=== PATIENT | female | born 1970 | race Caucasian/White ===

== ENCOUNTER 2017-05-11 15:33 | Emergency (ER) | payer BC, MEDICAID, SELFPAY ==
[2017-05-11 15:35] VITALS: BP 167/109; PULSE 116; RESP 18; TEMP 37.1; O2SAT 98; BMI 25.0
--- NOTE | 2017-05-11 16:30 | ED.RN ---
PT LEFT WITHOUT BEING SEEN.
== END 2017-05-11 16:52 | disposition left against medical advice (07) ==
LOC: ED 16:38
PROVIDERS: Emergency Provider Emergency Medicine
DX: F10.239 Alcohol dependence with withdrawal, unspecified (principal)

== ENCOUNTER 2017-06-29 12:30 | Emergency (ER) | payer MEDICAID, SELFPAY ==
[2017-06-29 12:31] VITALS: BP 189/51; PULSE 89; RESP 16; TEMP 36.6; O2SAT 98; BMI 26.5
--- NOTE | 2017-06-29 12:44 | CT_ITS ---
STUDY: CT BRAIN WITHOUT CONTRAST REASON FOR EXAM: Female, 47 years old. Headaches and dizziness following a recent fall. RADIATION DOSAGE (If Supplied By Facility): CTDIvol = ( 44.99 ) mGy, DLP = ( 812.98 ) mGycm TECHNIQUE: Transaxial CT imaging of the brain was performed without administration of intravenous contrast material. Individualized dose optimization techniques were used for this CT. COMPARISON: None. FINDINGS: Normal soft tissue structures. Normal calvarium. Normal size ventricles and extra-axial spaces for the patient's age. Normal white matter tracts of the cerebral hemispheres. Normal basal ganglia and thalami. Normal brainstem. Normal cerebellum. There is no intracranial hemorrhage. There are no findings of an acute ischemic infarction. Minimal mucosal thickening of the inferior aspect of the right maxillary sinus. CT/Brain/Head without Contrast IMPRESSION: Normal unenhanced CT scan of the brain. Electronically Signed: Willy Callahan MD at 13:51 EDT Tel [phone], Service support ,
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
[2017-06-29 13:06] LABS: Absolute Lymphocyte Count 4.56 X10^3/ul (0.83-4.51); Absolute Neutrophil Count 4.2 X10^3/uL (2.0-7.7); Basophil# 0.09 X10^3/uL; Basophil% 0.9 % (0-1); Eosinophil# 0.23 X10^3/uL; Eosinophils% 2.4 % (0-5); Hematocrit 41.7 % (37-47); Hemoglobin 14.6 g/dl (12.0-15.0); Lymphocyte # 4.56 X10^3/ul (4.0); Lymphocyte % 47.2 % (19-41); Mean Corpuscular Hgb 35.1 pg (27.0-32.0); Mean Corpuscular Volume 100.2 fL (81-99); Mean Platelet Vol. 8.8 fl (6.2-12.0); Monocyte# 0.55 X10^3/uL; Monocyte% 5.7 % (0-10); Neutrophil # 4.22 X10^3/uL (2.7-7.7); Neutrophil % 43.6 % (47-70); Platelet Count 353 K/mm3 (150-450); RBC Distribution Width SD 48.2 fl (35.1-43.9); Red Blood Count 4.16 M/mm3 (4.2-5.4); White Blood Count 9.7 K/mm3 (4.4-11.0)
[2017-06-29 13:07] LABS: POSITIVE COUNT NO; POSITIVE DIFFERENTIAL NO; POSITIVE MORPHOLOGY NO
--- NOTE | 2017-06-29 13:27 | NURSING ---
CHEMISTRIES HEMOLIZED
[2017-06-29 14:11] LABS: Anion Gap 7 (5-15); BUN 12 mg/dL (7-18); BUN/Creat Ratio 22.6 RATIO (10-20); Calcium,Total 8.4 mg/dL (8.5-10.1); Chloride 112 mmol/L (98-107); Creatinine, Serum 0.53 mg/dL (0.55-1.02); EST Glomerular Filtration Rate 131 mL/min (>60); Est Glom Filt Rate - Afr Amer 158 mL/min (>60); Estimated Creatinine Clearance 108.55 ml/min; Glucose 96 mg/dL (74-106); Potassium 4.3 mmol/L (3.5-5.1); Sodium Level 141 mmol/L (136-145)
--- NOTE | 2017-06-29 15:07 | ED.DEP ---
ED Disposition - Plan for ED Patient: Disposition: Home or Assisted Living Chief Complaint: Head Injury Instructions: ED Concussion Referrals: Moses Mckeon MD [STAFF PHYSICIAN] - 1 Week if not improving Additional Instructions: Date of fluids and rest. Tylenol or Motrin for pain. Your symptoms are consistent with post concussion syndrome. You want to rest her brain. This should progressively get better over the next several weeks.
[2017-06-29 15:15] VITALS: BP 164/106; PULSE 74; RESP 18; O2SAT 99
== END 2017-06-29 15:16 | disposition home or self-care (01) ==
PROVIDERS: Emergency Provider Emergency Medicine
DX: F07.81 Postconcussional syndrome (principal); I10 Essential (primary) hypertension; Z91.81 History of falling; Z72.0 Tobacco use
CPT/HCPCS: 70450; 80048; 85025; 99283; A4216

== ENCOUNTER → 2017-09-23 11:02 | Outpatient (CLI) | payer MEDICAID, SELFPAY ==
[2017-09-23 13:12] LABS: Absolute Lymphocyte Count 2.84 X10^3/ul (0.83-4.51); Absolute Neutrophil Count 5.8 X10^3/uL (2.0-7.7); Basophil# 0.03 X10^3/uL; Basophil% 0.3 % (0-1); Eosinophil# 0.19 X10^3/uL; Hemoglobin 12.6 g/dl (12.0-15.0); Lymphocyte # 2.84 X10^3/ul (4.0); Lymphocyte % 30.1 % (19-41); Mean Corp Hgb Conc 32.3 g/gl (32-36); Mean Corpuscular Hgb 32.2 pg (27.0-32.0); Mean Corpuscular Volume 99.7 fL (81-99); Mean Platelet Vol. 10.4 fl (6.2-12.0); Monocyte# 0.52 X10^3/uL; Monocyte% 5.5 % (0-10); Neutrophil # 5.82 X10^3/uL (2.7-7.7); Neutrophil % 61.9 % (47-70); POSITIVE COUNT NO; POSITIVE DIFFERENTIAL NO; POSITIVE MORPHOLOGY YES; Platelet Count 280 K/mm3 (150-450); RBC Distribution Width CV 12.5 % (11.6-14.6); RBC Distribution Width SD 45.5 fl (35.1-43.9); Red Blood Count 3.91 M/mm3 (4.2-5.4); White Blood Count 9.4 K/mm3 (4.4-11.0)
[2017-09-23 13:13] LABS: Differential Indicated SCAN CRITERIA MET
[2017-09-23 13:21] LABS: ALB/GLOB Ratio 0.8 RATIO (0.9-2.4); AST(SGOT) 20 U/L (15-37); Alanine Aminotransfer ALT/SGPT 25 U/L (13-56); Albumin, Serum 3.3 g/dL (3.2-5.0); Alkaline Phosphatase 84 U/L (45-117); Anion Gap 8 (5-15); BUN 9 mg/dL (7-18); BUN/Creat Ratio 14.4 RATIO (10-20); Calcium,Total 8.3 mg/dL (8.5-10.1); Chloride 106 mmol/L (98-107); Creatinine, Serum 0.62 mg/dL (0.55-1.02); EST Glomerular Filtration Rate 109 mL/min (>60); Est Glom Filt Rate - Afr Amer 132 mL/min (>60); Globulin 4.3 g/dL (2.2-4.2); Glucose 90 mg/dL (74-106); Potassium 4.1 mmol/L (3.5-5.1); Protein, Total 7.6 g/dL (6.4-8.2); Sodium Level 137 mmol/L (136-145)
[2017-09-26 09:12] LABS: Hep C Antibodies >11.0 s/co ratio (0.0-0.9)
== END ==
PROVIDERS: Visit Provider Family Medicine Geriatric Medicine
DX: I10 Essential (primary) hypertension (principal); N39.0 Urinary tract infection, site not specified; Z13.89 Encounter for screening for other disorder
CPT/HCPCS: 36415; 80053; 84443; 85025; 86803; 87086

== ENCOUNTER → 2017-09-26 10:04 | Outpatient (CLI) | payer MEDICAID, SELFPAY ==
--- NOTE | 2017-09-26 10:15 | RAD_ITS ---
STUDY: X-RAY - ABDOMEN/PELVIS REASON FOR EXAM: Female, 47 years old. Abdominal pain. TECHNIQUE: Single AP view of the abdomen / pelvis. COMPARISON: None. FINDINGS: There is an abundance of fecal material throughout the colon. The visualized liver, spleen and kidneys are grossly normal in size and morphology. Normal soft tissue structures. Normal visualized osseous structures. RAD/Abdomen Single View IMPRESSION: Large amount of fecal material is seen in the colon. Electronically Signed: Willy Callahan MD at 12:48 EDT Tel [phone], Service support ,
--- NOTE | 2017-09-26 10:20 | RAD_ITS ---
STUDY: X-RAY CHEST REASON FOR EXAM: Female, 47 years old. Shortness of breath and dyspnea. Chest heaviness. TECHNIQUE: PA and lateral views of the chest. COMPARISON: None. FINDINGS: Hyperinflation. Decreased bronchovascular markings in the lung apices suggestive of a emphysematous changes. Blunting of the costophrenic angles posteriorly. Normal size heart. Normal mediastinum and wayne. Normal visualized pulmonary arteries. Normal visualized aortic arch and descending thoracic aorta. There is demineralization of the osseous structures. Normal visualized ribs, clavicles, and shoulders. There is no demonstrated abnormality of the visualized soft tissue structures of the upper abdomen. RAD/Chest PA and Lateral IMPRESSION: Hyperinflation. Blunting of the posterior costophrenic angles bilaterally. Electronically Signed: Willy Callahan MD at 12:48 EDT Tel [phone], Service support ,
--- NOTE | 2017-09-26 10:30 | RAD_ITS ---
STUDY: X-RAY - PELVIS AND LEFT HIP REASON FOR EXAM: Female, 47 years old. Chronic hip pain. TECHNIQUE: Radiological exam, hip, unilateral, with pelvis when performed; 2 or 3 views. COMPARISON: None. FINDINGS: There is a non-specific bowel gas pattern. Normal visualized soft tissue structures. Normal bilateral iliac wings, sacroiliac joints and visualized sacrum. Normal bilateral superior and inferior pubic rami. Normal pubic symphysis. Normal bilateral ischial tuberosities. Normal visualized femoral head. Normal acetabulum. Normal hip joint. RAD/Hip 2-3 Views with Pelvis IMPRESSION: Normal x-ray examination of the pelvis and hip. Electronically Signed: Willy Callahan MD at 12:49 EDT Tel [phone], Service support ,
== END ==
PROVIDERS: Visit Provider Family Medicine Geriatric Medicine
DX: R06.89 Other abnormalities of breathing (principal); R10.9 Unspecified abdominal pain; M25.559 Pain in unspecified hip
CPT/HCPCS: 71046; 73502; 74018

== ENCOUNTER → 2017-09-26 11:40 | Outpatient (CLI) | payer MEDICAID, SELFPAY ==
[2017-09-29 09:37] LABS: HCV Quant. RNA PCR HCV Not Detected IU/mL (.)
== END ==
PROVIDERS: Visit Provider Family Medicine Geriatric Medicine
DX: B19.20 Unspecified viral hepatitis C without hepatic coma (principal); R06.89 Other abnormalities of breathing; R10.9 Unspecified abdominal pain; M25.559 Pain in unspecified hip
CPT/HCPCS: 36415; 71046; 73502; 74018; 87521; 87522; 87902

== ENCOUNTER → 2017-10-04 14:07 | Outpatient (CLI) | payer MEDICAID, SELFPAY ==
--- NOTE | 2017-10-04 17:50 | RAD_ITS ---
STUDY: X-RAY CHEST REASON FOR EXAM: Female, 47 years old. Coughing TECHNIQUE: PA and lateral COMPARISON: September 26, 2017 FINDINGS: Lungs are mildly hyperinflated and there is mild interstitial thickening in the lower lobes greater on the left There is no demonstrated pleural abnormality. Normal size heart. Normal mediastinum and wayne. Normal visualized pulmonary arteries. Normal visualized aortic arch and descending thoracic aorta. Normal visualized thoracic spine. Normal visualized ribs, clavicles, and shoulders. There is no demonstrated abnormality of the visualized soft tissue structures of the upper abdomen. There is interval improvement of the pleural effusion and basilar atelectasis or infiltrate on previous study RAD/Chest PA and Lateral IMPRESSION: Mild COPD. No acute disease. Electronically Signed: Rey Luong MD at 18:45 EDT , Service support ,
[2017-10-04 18:48] LABS: Hematocrit 40.1 % (37-47); Hemoglobin 13.4 g/dl (12.0-15.0); Mean Corp Hgb Conc 33.4 g/gl (32-36); Mean Corpuscular Hgb 32.9 pg (27.0-32.0); Mean Corpuscular Volume 98.5 fL (81-99); Red Blood Count 4.07 M/mm3 (4.2-5.4); White Blood Count 13.4 K/mm3 (4.4-11.0)
[2017-10-04 18:49] LABS: Basophil% 0.1 % (0-1); Eosinophil# 0.03 X10^3/uL; Eosinophils% 0.2 % (0-5); Lymphocyte % 8.2 % (19-41); Mean Platelet Vol. 9.9 fl (6.2-12.0); Monocyte# 0.18 X10^3/uL; Monocyte% 1.3 % (0-10); Neutrophil # 11.99 X10^3/uL (2.7-7.7); Neutrophil % 89.9 % (47-70); POSITIVE COUNT NO; POSITIVE DIFFERENTIAL NO; POSITIVE MORPHOLOGY NO; Platelet Count 332 K/mm3 (150-450); RBC Distribution Width CV 12.1 % (11.6-14.6); RBC Distribution Width SD 43.1 fl (35.1-43.9)
[2017-10-04 18:50] LABS: Basophil# 0.01 X10^3/uL
[2017-10-04 18:59] LABS: Anion Gap 12 (5-15); BUN 45 mg/dL (7-18); BUN/Creat Ratio 21.5 RATIO (10-20); Calcium,Total 8.1 mg/dL (8.5-10.1); Chloride 108 mmol/L (98-107); Creatinine, Serum 2.09 mg/dL (0.55-1.02); EST Glomerular Filtration Rate 27 mL/min (>60); Est Glom Filt Rate - Afr Amer 33 mL/min (>60); Glucose 110 mg/dL (74-106); Potassium 4.2 mmol/L (3.5-5.1); Sodium Level 137 mmol/L (136-145)
== END ==
PROVIDERS: Family Provider Family Medicine Geriatric Medicine; PCP Family Medicine Geriatric Medicine; Visit Provider Family Medicine Geriatric Medicine
DX: R05 Cough (principal)
CPT/HCPCS: 36415; 71046; 80048; 85025

== ENCOUNTER → 2017-10-05 14:24 | Outpatient (CLI) | payer MEDICAID, SELFPAY ==
[2017-10-05 16:08] LABS: Anion Gap 8 (5-15); BUN 34 mg/dL (7-18); BUN/Creat Ratio 36.2 RATIO (10-20); Calcium,Total 8.6 mg/dL (8.5-10.1); Chloride 113 mmol/L (98-107); Creatinine, Serum 0.94 mg/dL (0.55-1.02); EST Glomerular Filtration Rate 68 mL/min (>60); Est Glom Filt Rate - Afr Amer 82 mL/min (>60); Glucose 103 mg/dL (74-106); Potassium 3.8 mmol/L (3.5-5.1); Sodium Level 143 mmol/L (136-145); Thyroid Stim Hormone (TSH) 1.89 uIU/mL (0.358-3.74)
== END ==
PROVIDERS: Family Provider Family Medicine Geriatric Medicine; PCP Family Medicine Geriatric Medicine; Visit Provider Family Medicine Geriatric Medicine
DX: E03.9 Hypothyroidism, unspecified (principal)
CPT/HCPCS: 36415; 80048; 84443

== ENCOUNTER 2017-10-22 08:57 | Inpatient (IN) | payer MEDICAID, SELFPAY ==
[2017-10-22] VITALS (7 sets, daily range): BP systolic 76–125; BP diastolic 48–110; PULSE 88–104; RESP 16–20; TEMP 36.6–37.1; O2SAT 91–98; BMI 28.7; BMI 26.4
--- NOTE | 2017-10-22 09:09 | CT_ITS ---
STUDY: CT ABDOMEN AND PELVIS WITHOUT CONTRAST REASON FOR EXAM: Female, 47 years old. Generalized abdominal pain. RADIATION DOSAGE (If Supplied By Facility): CTDIvol = ( 7.42 ) mGy, DLP = ( 396.86 ) mGycm TECHNIQUE: Transaxial images were obtained from the dome of the diaphragm to the symphysis pubis without oral contrast, and without intravenous contrast. Sagittal and coronal images were reconstructed. Individualized dose optimization techniques were used for this CT. COMPARISON: None. FINDINGS: The visualized portions of lung bases demonstrate hypoventilatory changes. There is a small bulla in the right lower lobe. There is mild stranding/atelectasis in the lingula. The visualized portions of the heart are within normal limits. Normal liver. Normal gallbladder and extrahepatic biliary system. Normal spleen. Normal pancreas. Normal bilateral adrenal glands. Normal right kidney. Normal left kidney. There is a small hiatal hernia. Normal small intestine. There is fecal retention. There is mild thickening of the transverse colon without pericolonic stranding probably due to mild under distention. No pericolonic stranding is seen. There is a short appendix-like structure in the right lower quadrant which could represent diverticulum or remnant of the appendix however by history, the patient status post appendectomy. There is atherosclerotic calcification of the abdominal aorta, without a demonstrated aneurysm. Normal inferior vena cava. Normal retroperitoneum. Normal urinary bladder. There is absence of the uterus consistent with a prior hysterectomy. There is a small umbilical hernia containing fat. There are mild degenerative changes in the spine. CT/Abdomen/Pelvis without Cont IMPRESSION: Hypoventilatory and mild atelectatic changes in the lung bases. Mild thickening of the transverse colon probably due to underdistention. Colitis is less likely. Otherwise no demonstrated acute process. Small umbilical hernia containing fat. Small hiatal hernia. Electronically Signed: Lux Medrano MD at 10:06 EDT Tel , Service support ,
--- NOTE | 2017-10-22 09:09 | EKG12_ITS ---
Test Reason : AB PAIN Blood Pressure : / mmHG Vent. Rate : 088 BPM Atrial Rate : 088 BPM P-R Int : 170 ms QRS Dur : 098 ms QT Int : 366 ms P-R-T Axes : 071 050 044 degrees QTc Int : 442 ms Normal sinus rhythm Normal ECG Confirmed by ТАТЬЯНА AGUILAR, JIMY ([id number]), photographic editor BELL COLLINS ([id number] on 10/24/2017 1:31:43 PM Referred By: SAMANTHA Confirmed By:JIMY VAZ MD
--- NOTE | 2017-10-22 09:11 | ED.VISSUMM ---
- ER Visit Summary Date of Service: 10/22/17 Chief Complaint: [] Lower abdominal pain fall to ground History of Present Illness: The patient is a 47 F [] the patient is a resident of a [facility] related to behavioral health mental health disorder unspecified per the staff there she began complaining of lower abdominal pain that she basically fell to the ground on her knees she did not injure her body anyway her symptoms persisted and she was brought to the hospital, the patient's response to most questions as I do not know, so when she is asked when the pain began she says I do not know when she is asked location of the pain she says I do not know what seems to suggest lower abdominal area, she indicates she did have an appendectomy and a hysterectomy she indicates she is having what she believes is normal bowel bladder habits. She is not prone to abdominal pain from what we can determine but her history is limited because of the above she is awake and alert her name she is moving all 4 extremities her chief complaint this time as she wants to have a bowel movement denies head pain neck pain chest pain shortness of breath, per staff she was not ill before this began except to complain of intermittent abdominal pain Physical Examination: [] Awake and alert her vital signs are within normal range blood pressures about 100 she will open her eyes and answer questions as above HEENT is unremarkable neck is supple head without trauma the lungs are clear the heart tones are normal she seems to have some lower abdominal suprapubic pain there is no rebound guarding organomegaly upper lower extremities unremarkable she is moving all 4 without difficulty with no signs of pain she is a circular bruise that is old to the left flexor surface forearm, she knows her name she knows she is at the hospital and she is a very difficult historian as above Test Results: [] Emergency Department Course and Treatment: [] Patient's blood pressure now is 125/80, CT shows nothing acute, her white count is 13,000 and her labs are generally unremarkable except her creatinine is almost 4 this is an elevation for her, we did speak with the [facility] center they are concerned about the possibility of her abusing drugs there because of erratic behavior she does have small bruises over her extremities that she cannot explain, the [facility] is asking that she undergo mental health assessment, in addition we did do a tox screen came back positive for methamphetamines and opiates, she was given morphine prior to collection of the urine there is no obvious explanation for the methamphetamine, at this time given all the above we have asked the hospital see her for admission and mental health services will do a consultation as well Treatment Plan: [] Disposition: [] Admit stable Impression: [] Abdominal pain, acute renal injury, dehydration, possible drug abuse, mental health and behavioral health disorders This note was generated with [employer] dictation software. It may contain incorrect words, spelling, and punctuation that were not noted in review of the chart prior to signing ED Disposition - Plan for ED Patient: Chief Complaint: Abd Pain Referrals: Antonio Ndiaye Chi, MD [Primary Care Provider] -
[2017-10-22] MEDS: 0.9% Normal Saline 1,000 ML 1000 ML IV (09:22)
[2017-10-22] MEDS: Ondansetron 4 MG/2 ML Vial IV (09:22)
[2017-10-22] MEDS: Morphine 4 MG/ML Syringe IV (09:23)
[2017-10-22 09:36] LABS: Absolute Lymphocyte Count 3.83 X10^3/ul (0.83-4.51); Absolute Neutrophil Count 8.1 X10^3/uL (2.0-7.7); Basophil# 0.04 X10^3/uL; Basophil% 0.3 % (0-1); Eosinophil# 0.14 X10^3/uL; Eosinophils% 1.1 % (0-5); Hematocrit 37.8 % (37-47); Hemoglobin 12.8 g/dl (12.0-15.0); Lymphocyte # 3.83 X10^3/ul (4.0); Lymphocyte % 29.9 % (19-41); Mean Corp Hgb Conc 33.9 g/gl (32-36); Mean Corpuscular Hgb 32.8 pg (27.0-32.0); Mean Corpuscular Volume 96.9 fL (81-99); Mean Platelet Vol. 9.7 fl (6.2-12.0); Monocyte# 0.68 X10^3/uL; Monocyte% 5.3 % (0-10); Neutrophil # 8.12 X10^3/uL (2.7-7.7); Neutrophil % 63.2 % (47-70); POSITIVE COUNT NO; POSITIVE DIFFERENTIAL NO; POSITIVE MORPHOLOGY NO; Platelet Count 286 K/mm3 (150-450); RBC Distribution Width CV 12.4 % (11.6-14.6); RBC Distribution Width SD 43.6 fl (35.1-43.9); White Blood Count 12.8 K/mm3 (4.4-11.0)
[2017-10-22 09:47] LABS: AST(SGOT) 22 U/L (15-37); Alanine Aminotransfer ALT/SGPT 26 U/L (13-56); Albumin, Serum 3.9 g/dL (3.2-5.0); Alkaline Phosphatase 68 U/L (45-117); Anion Gap 14 (5-15); BUN 47 mg/dL (7-18); BUN/Creat Ratio 13.5 RATIO (10-20); Bilirubin, Direct 0.15 mg/dL (0.00-0.30); Calcium,Total 9.1 mg/dL (8.5-10.1); Chloride 98 mmol/L (98-107); Creatinine, Serum 3.48 mg/dL (0.55-1.02); EST Glomerular Filtration Rate 15 mL/min (>60); Est Glom Filt Rate - Afr Amer 18 mL/min (>60); Estimated Creatinine Clearance 16.53 ml/min; Globulin 4.1 g/dL (2.2-4.2); Glucose 131 mg/dL (74-106); Lipase 129 U/L (73-393); Sodium Level 134 mmol/L (136-145)
[2017-10-22 10:12] LABS: Bacteria 0 SEEN /hpf (None Seen); Mucous, Urine 0 SEEN /hpf (<or=2+); Red Blood Cells-Urine 0 SEEN /hpf (0-5); Squamous Epithelial Cells - UA 0 SEEN /hpf (5-10); White Blood Cells 0 SEEN /hpf (0-5)
[2017-10-22 10:30] LABS: Color, Urine Yellow (Yellow); Glucose, Dipstick Normal (Normal); Ketone-Dipstick Negative (Negative); Leukocyte Esterase-Dipstick 25 /ul (Negative); Nitrite-Dipstick Negative (Negative); Occult Blood-Urine Negative /ul (Negative); Protein-Dipstick 15 mg/dl (Negative); Urine Clarity Clear (Clear); Urine Urobilinogen Normal (Normal)
[2017-10-22 10:40] LABS: Urine Bilirubin Dipstick 1 mg/dL (Negative)
[2017-10-22 10:41] LABS: Amorphous Sediment 2+
[2017-10-22 10:49] LABS: Amphetamine Urine VISTA POSITIVE (<1000 ng/mL); Barbiturate Urine VISTA NEGATIVE (< 200 ng/mL); Benzodiazepine Urine VISTA NEGATIVE (< 200 ng/mL); Cocaine Urine VISTA NEGATIVE (< 300 ng/mL); Ecstacy Urine VISTA POSITIVE (< 500 ng/mL); Methadone Urine VISTA NEGATIVE (< 300 ng/mL); PCP Urine VISTA NEGATIVE (< 25 ng/mL); THC Urine VISTA NEGATIVE (< 50 ng/mL); Vista UDS pH Range 5
[2017-10-22] MEDS: 0.9% Normal Saline 1,000 ML 150 ML IV ×2 (14:05→20:25)
--- NOTE | 2017-10-22 14:43 | PCM.HP.STD ---
Problem List (1) RMEBERTO (acute kidney injury) Status: Acute (2) Toxic encephalopathy Status: Acute (3) Back pain Status: Acute (4) Mouth pain Status: Acute (5) Syncope Status: Acute History of Present Illness Date of Admission: 10/22/17 Chief Complaint: back pain. mouth pain. syncope The patient is a 47 year old F complains of a 2 day history of mouth and back pain. Patient also states that she has experienced worsening goes out. Patient presented to the emergency room for erratic behavior from the nursing home. There was reports that the patient was going out and using drugs or at least suspected. Patient states that due to her back pain front of her gave her some powder to put in her mouth to help with her pain. Patient described it as crystalline or icey in appearance but does not know if it was crystal meth or not. Patient was found to have a creatinine of 3.48 up from 0.94 September. Earlier in September, patient was noted to have acute kidney injury with creatinine of 2.09 and patient stated that her primary care doctor put her on IV fluids. Patient denies having diarrhea but does state that she is constipated. She feels that she is been putting on weight as well and put on roughly 40 pounds over the past 4 weeks. [] Past Medical History Medical History: Medical History (Last Updated 10/22/17 @ 14:49 by Rudy Crespo DO) Hypothyroid E03.9 IBS (irritable bowel syndrome) K58.9 Mental health disorder F99 HTN (hypertension) I10 Allergies diphenhydramine HCl [From Benadryl] Allergy (Verified 10/22/17 09:03) Pain in joints Penicillins Allergy (Verified 10/22/17 09:03) Anaphylaxis Sulfa (Sulfonamide Antibiotics) Allergy (Verified 10/22/17 09:03) Anaphylaxis Home Medications: Ambulatory Orders Medication Instructions Recorded Acetaminophen 500 mg PO 4X/DAY PRN PRN 10/22/17 Benztropine [Cogentin] 1 mg PO BID 10/22/17 Estradiol 1 mg PO DAILY 10/22/17 Haloperidol 2 mg PO QHS 10/22/17 Levothyroxine [Synthroid] 25 mcg PO DAILY 10/22/17 Lisinopril/Hydrochlorothiazide 1 tablet PO BID 10/22/17 [Zestoretic 20/12.5 Tablet] Ondansetron [Zofran Odt] 4 mg PO Q8H PRN PRN 10/22/17 Quetiapine Fumarate [Seroquel] 50 mg PO BID 10/22/17 Quetiapine Fumarate [Seroquel] 600 mg PO QHS 10/22/17 Surgical History: Surgical History (Last Updated 10/22/17 @ 14:49 by Rudy Crespo DO) H/O: hysterectomy Z90.710 Psychiatric History: - - NOS Lives: - - nursing home. Smoking Status: Current every day smoker Tobacco Use: Cigarettes - *Family History Maternal History Items: - - no CAD Review of Systems Constitutional: Reports: Anorexia, Chills. Denies: Fever Eyes: Reports: Blurred vision. Denies: Double vision HEENT: Denies: Head Aches, Sinus Congestion, Sinus Drainage Cardiovascular: Denies: Chest Pain, Palpitations Respiratory: Reports: Shortness of Breath. Denies: Cough, Shortness of breath at rest, Sputum production Gastrointestinal: Reports: Abdominal Pain, Constipation, Nausea. Denies: Diarrhea, Vomiting Genitourinary: Denies: Dysuria Musculoskeletal: Reports: Back Pain. Denies: Joint Pain, Joint Tenderness Skin: Denies: Rash, Wounds Neurological: Reports: Blurred vision. Denies: Double vision, Focal weakness, Numbness, Tingling Psychiatric: Reports: Anxiety Endocrine: Reports: Change in Body Habitus, Heat/ Cold Intolerance Hematologic/ Lymphatic: Denies: Easy Bruising, Easy Bleeding, Hx of blood clot Comment: All review of systems are negative except as mentioned in the history of present illness and the other review of systems. VTE Information - Inpt Only VTE Present on Admission: No VTE Mechan Device Prophylaxis: None VTE Pharm Prophylaxis ordered?: Yes Patient Problems: Active and Suspected Problems REMBERTO (acute kidney injury) (Acute) Toxic encephalopathy (Acute) Back pain (Acute) Mouth pain (Acute) Syncope (Acute) - Physical Exam General: Alert, Well developed, Well nourished, - - Anxious and fidgety in her bed HEENT: Atraumatic, PERRLA, Normocephalic, - - No scleral icterus Oral: Moist Mucosa, No Gingival or Mucosal Lesions/ Ulcerations, - - No ulcerations were the patient is indicating that they are sore Neck: Supple, No JVD, Negative Carotid Bruits Lungs: Clear to auscultation, Normal air movement Cardiovascular: Regular rate, Regular Rhythm, Normal S1, Normal S2, No murmurs Abdomen: Bowel Sounds Present, Soft, Non Tender, Non-Distended, No Hepato-splenomegaly Extremities: No edema, No Calf Tenderness Skin: No rashes, No breakdown Musculoskeletal: No Tenderness to Palpation of Joints or Extremities, No Muscle Wasting, - - Mild reproducible paraspinal lumbar tenderness more prominent on the right than on the left. Should be noted the patient was not have any evidence of pain with distraction Neurological: Cranial nerves II-XII grossly intact, Neuro grossly intact, Motor Exam 5/5 strength throughout Psych/Mental Status: Agitated, Anxious Vital Signs Temp Pulse Resp BP Pulse Ox 36.9 C 104 H 20 H 109/66 94 10/22/17 12:51 10/22/17 12:51 10/22/17 12:51 10/22/17 12:51 10/22/17 12:51 Oxygen Delivery Method Room Air Weight: 67.7 kg Body Mass Index (BMI) 26.4 Clinical Impression(s) from Imaging Studies Abdomen/Pelvis CT 10/22/17 09:09 IMPRESSION: Hypoventilatory and mild atelectatic changes in the lung bases. Mild thickening of the transverse colon probably due to underdistention. Colitis is less likely. Otherwise no demonstrated acute process. Small umbilical hernia containing fat. Small hiatal hernia. Electronically Signed: Lux Medrano MD at 10:06 EDT Tel , Service support , Assessment/Plan All Active Problems REMBERTO (acute kidney injury) (Acute) Toxic encephalopathy (Acute) Back pain (Acute) Mouth pain (Acute) Syncope (Acute) 1. Acute kidney injury I am unclear of why this is traumatic changes over the past month Will hold the patient's lisinopril/hydrochlorothiazide Continue with IV fluids Check urine studies to further evaluate Avoid nephrotoxic agents Consider consultation to nephrology if creatinine gets worse despite conservative measures 2. Suspected toxic encephalopathy Patient is very anxious agitated Patient does endorse taking crystalline type substance. Patient is positive for lupus drugs though some this may be false positive with her psych psychiatric medications but patient is endorsing some crystalline substance which could be increased from. It is unclear if the patient is very anxious due to possible ingestion Medical management for now Should be noted the patient did receive opiates before the drug screen which could explain the positive drug screen 3. Back pain Seems more muscular etiology Will add Flexeril Avoid narcotics Avoid NSAIDs for now given acute kidney injury 4. Mental health disorder, not otherwise specified Continue with her psychiatric medications Follow-up with psychiatry as outpatient 5. DVT prophylaxis with heparin Code Visit Inpatient E&M: 67255 Init Hosp L3
--- NOTE | 2017-10-22 14:49 | HP.PCM_ITS ---
Problem List (1) REMBERTO (acute kidney injury) Status: Acute (2) Toxic encephalopathy Status: Acute (3) Back pain Status: Acute (4) Mouth pain Status: Acute (5) Syncope Status: Acute History of Present Illness Date of Admission: 10/22/17 Chief Complaint: back pain. mouth pain. syncope The patient is a 47 year old F complains of a 2 day history of mouth and back pain. Patient also states that she has experienced worsening goes out. Patient presented to the emergency room for erratic behavior from the shelter. There was reports that the patient was going out and using drugs or at least suspected. Patient states that due to her back pain front of her gave her some powder to put in her mouth to help with her pain. Patient described it as crystalline or icey in appearance but does not know if it was crystal meth or not. Patient was found to have a creatinine of 3.48 up from 0.94 September. Earlier in September, patient was noted to have acute kidney injury with creatinine of 2.09 and patient stated that her primary care doctor put her on IV fluids. Patient denies having diarrhea but does state that she is constipated. She feels that she is been putting on weight as well and put on roughly 40 pounds over the past 4 weeks. [] Past Medical History Medical History: Medical History (Last Updated 10/22/17 @ 14:49 by Rudy Crespo DO) Hypothyroid E03.9 IBS (irritable bowel syndrome) K58.9 Mental health disorder F99 HTN (hypertension) I10 Allergies diphenhydramine HCl [From Benadryl] Allergy (Verified 10/22/17 09:03) Pain in joints Penicillins Allergy (Verified 10/22/17 09:03) Anaphylaxis Sulfa (Sulfonamide Antibiotics) Allergy (Verified 10/22/17 09:03) Anaphylaxis Home Medications: Ambulatory Orders Medication Instructions Recorded Acetaminophen 500 mg PO 4X/DAY PRN PRN 10/22/17 Benztropine [Cogentin] 1 mg PO BID 10/22/17 Estradiol 1 mg PO DAILY 10/22/17 Haloperidol 2 mg PO QHS 10/22/17 Levothyroxine [Synthroid] 25 mcg PO DAILY 10/22/17 Lisinopril/Hydrochlorothiazide 1 tablet PO BID 10/22/17 [Zestoretic 20/12.5 Tablet] Ondansetron [Zofran Odt] 4 mg PO Q8H PRN PRN 10/22/17 Quetiapine Fumarate [Seroquel] 50 mg PO BID 10/22/17 Quetiapine Fumarate [Seroquel] 600 mg PO QHS 10/22/17 Surgical History: Surgical History (Last Updated 10/22/17 @ 14:49 by Rudy Crespo DO) H/O: hysterectomy Z90.710 Psychiatric History: - - NOS Lives: - - shelter. Smoking Status: Current every day smoker Tobacco Use: Cigarettes - *Family History Maternal History Items: - - no CAD Review of Systems Constitutional: Reports: Anorexia, Chills. Denies: Fever Eyes: Reports: Blurred vision. Denies: Double vision HEENT: Denies: Head Aches, Sinus Congestion, Sinus Drainage Cardiovascular: Denies: Chest Pain, Palpitations Respiratory: Reports: Shortness of Breath. Denies: Cough, Shortness of breath at rest, Sputum production Gastrointestinal: Reports: Abdominal Pain, Constipation, Nausea. Denies: Diarrhea, Vomiting Genitourinary: Denies: Dysuria Musculoskeletal: Reports: Back Pain. Denies: Joint Pain, Joint Tenderness Skin: Denies: Rash, Wounds Neurological: Reports: Blurred vision. Denies: Double vision, Focal weakness, Numbness, Tingling Psychiatric: Reports: Anxiety Endocrine: Reports: Change in Body Habitus, Heat/ Cold Intolerance Hematologic/ Lymphatic: Denies: Easy Bruising, Easy Bleeding, Hx of blood clot Comment: All review of systems are negative except as mentioned in the history of present illness and the other review of systems. VTE Information - Inpt Only VTE Present on Admission: No VTE Mechan Device Prophylaxis: None VTE Pharm Prophylaxis ordered?: Yes Patient Problems: Active and Suspected Problems REMBERTO (acute kidney injury) (Acute) Toxic encephalopathy (Acute) Back pain (Acute) Mouth pain (Acute) Syncope (Acute) - Physical Exam General: Alert, Well developed, Well nourished, - - Anxious and fidgety in her bed HEENT: Atraumatic, PERRLA, Normocephalic, - - No scleral icterus Oral: Moist Mucosa, No Gingival or Mucosal Lesions/ Ulcerations, - - No ulcerations were the patient is indicating that they are sore Neck: Supple, No JVD, Negative Carotid Bruits Lungs: Clear to auscultation, Normal air movement Cardiovascular: Regular rate, Regular Rhythm, Normal S1, Normal S2, No murmurs Abdomen: Bowel Sounds Present, Soft, Non Tender, Non-Distended, No Hepato- splenomegaly Extremities: No edema, No Calf Tenderness Skin: No rashes, No breakdown Musculoskeletal: No Tenderness to Palpation of Joints or Extremities, No Muscle Wasting, - - Mild reproducible paraspinal lumbar tenderness more prominent on the right than on the left. Should be noted the patient was not have any evidence of pain with distraction Neurological: Cranial nerves II-XII grossly intact, Neuro grossly intact, Motor Exam 5/5 strength throughout Psych/Mental Status: Agitated, Anxious Vital Signs Temp Pulse Resp BP Pulse Ox 36.9 C 104 H 20 H 109/66 94 10/22/17 12:51 10/22/17 12:51 10/22/17 12:51 10/22/17 12:51 10/22/17 12:51 Oxygen Delivery Method Room Air Weight: 67.7 kg Body Mass Index (BMI) 26.4 Clinical Impression(s) from Imaging Studies Abdomen/Pelvis CT 10/22/17 09:09 IMPRESSION: Hypoventilatory and mild atelectatic changes in the lung bases. Mild thickening of the transverse colon probably due to underdistention. Colitis is less likely. Otherwise no demonstrated acute process. Small umbilical hernia containing fat. Small hiatal hernia. Electronically Signed: Lux Medraon MD at 10:06 EDT Tel , Service support , Assessment/Plan All Active Problems REMBERTO (acute kidney injury) (Acute) Toxic encephalopathy (Acute) Back pain (Acute) Mouth pain (Acute) Syncope (Acute) 1. Acute kidney injury * I am unclear of why this is traumatic changes over the past month * Will hold the patient's lisinopril/hydrochlorothiazide * Continue with IV fluids * Check urine studies to further evaluate * Avoid nephrotoxic agents * Consider consultation to nephrology if creatinine gets worse despite conservative measures 2. Suspected toxic encephalopathy * Patient is very anxious agitated * Patient does endorse taking crystalline type substance. Patient is positive for lupus drugs though some this may be false positive with her psych psychiatric medications but patient is endorsing some crystalline substance which could be increased from. It is unclear if the patient is very anxious due to possible ingestion * Medical management for now * Should be noted the patient did receive opiates before the drug screen which could explain the positive drug screen 3. Back pain * Seems more muscular etiology * Will add Flexeril * Avoid narcotics * Avoid NSAIDs for now given acute kidney injury 4. Mental health disorder, not otherwise specified * Continue with her psychiatric medications * Follow-up with psychiatry as outpatient 5. DVT prophylaxis with heparin Code Visit Inpatient E&M: 12287 Init Hosp L3
[2017-10-22] MEDS: Heparin Injection (Vial) 5,000 UNIT/ML VIAL 5000 UNIT SC (15:13)
[2017-10-22 17:36] LABS: Urine Sodium 111 mmol/L (Not Establ.)
[2017-10-22] MEDS: Acetaminophen 325 MG Tablet 650 MG PO (20:29)
--- NOTE | 2017-10-22 21:45 | NURSING ---
PT REFUSED ALL HER MEDICATIONS.
[2017-10-23 02:36] VITALS: BP 110/86; PULSE 90; RESP 16; TEMP 36.8; O2SAT 96
[2017-10-23] MEDS: 0.9% Normal Saline 1,000 ML 150 ML IV (02:55)
[2017-10-23] MEDS: Acetaminophen 325 MG Tablet 650 MG PO (05:48)
[2017-10-23 05:49] LABS: Absolute Lymphocyte Count 3.58 X10^3/ul (0.83-4.51); Basophil# 0.05 X10^3/uL; Basophil% 0.7 % (0-1); Eosinophil# 0.23 X10^3/uL; Eosinophils% 3.1 % (0-5); Hematocrit 31.8 % (37-47); Hemoglobin 10.9 g/dl (12.0-15.0); Lymphocyte # 3.58 X10^3/ul (4.0); Lymphocyte % 48.8 % (19-41); Mean Corp Hgb Conc 34.3 g/gl (32-36); Mean Corpuscular Hgb 33.5 pg (27.0-32.0); Mean Corpuscular Volume 97.8 fL (81-99); Mean Platelet Vol. 9.9 fl (6.2-12.0); Monocyte# 0.45 X10^3/uL; Monocyte% 6.1 % (0-10); Neutrophil # 3.01 X10^3/uL (2.7-7.7); Neutrophil % 41.2 % (47-70); Platelet Count 282 K/mm3 (150-450); RBC Distribution Width CV 11.9 % (11.6-14.6); RBC Distribution Width SD 40.6 fl (35.1-43.9); Red Blood Count 3.25 M/mm3 (4.2-5.4); White Blood Count 7.3 K/mm3 (4.4-11.0)
[2017-10-23] MEDS: Levothyroxine 25 MCG TABLET PO (05:49)
[2017-10-23 05:54] LABS: POSITIVE COUNT NO; POSITIVE DIFFERENTIAL NO; POSITIVE MORPHOLOGY NO
[2017-10-23 06:19] LABS: Anion Gap 9 (5-15); BUN 33 mg/dL (7-18); BUN/Creat Ratio 22.3 RATIO (10-20); Chloride 108 mmol/L (98-107); Creatinine, Serum 1.48 mg/dL (0.55-1.02); EST Glomerular Filtration Rate 40 mL/min (>60); Est Glom Filt Rate - Afr Amer 49 mL/min (>60); Estimated Creatinine Clearance 38.87 ml/min; Glucose 114 mg/dL (74-106); Potassium 4.3 mmol/L (3.5-5.1); Sodium Level 139 mmol/L (136-145)
[2017-10-23 08:40] VITALS: BP 125/86; PULSE 90; RESP 20; TEMP 36.6; O2SAT 99
--- NOTE | 2017-10-23 09:08 | PCM.PN.HOSP ---
Patient Problems: Active and Suspected Problems (Last Updated 10/22/17 @ 14:49 by Rudy Crespo DO) REMBERTO (acute kidney injury) (Acute) Toxic encephalopathy (Acute) Back pain (Acute) Mouth pain (Acute) Syncope (Acute) Subjective: Feeling better. Mouth still sore. Back pain better. Vitals/I&O's: Vital Signs Temp Pulse Resp BP Pulse Ox 36.8 C 90 16 110/86 H 96 10/23/17 02:36 10/23/17 02:36 10/23/17 02:36 10/23/17 02:36 10/23/17 02:36 Oxygen Delivery Method Room Air Weight: 67.7 kg Body Mass Index (BMI) 26.4 Intake and Output for Last 24 Hours 10/21/17 10/22/17 10/23/17 23:59 23:59 23:59 Intake Total 2958 / 2958 Balance 2958 / 2958 General: Alert, Cooperative, No apparent distress, - - much more comfortable today. HEENT: - - no ulcers. Upper teeth extraction sites clean based with defect. Oral: Moist Mucosa, No Gingival or Mucosal Lesions/ Ulcerations Cardiovascular: Regular rate, Regular Rhythm, Normal S1, Normal S2, No murmurs Abdomen: Bowel Sounds Present, Soft, Non Tender, Non-Distended, No Hepato-splenomegaly Extremities: No edema, No Calf Tenderness Psych/Mental Status: Normal Affect, Appropriate Laboratory Results 10/23/17 05:15: WBC 7.3, RBC 3.25 L, Hgb 10.9 L, Hct 31.8 L, MCV 97.8, MCH 33.5 H, MCHC 34.3, RDW 11.9, RDW Differential 40.6, Plt Count 282, MPV 9.9, Immature Gran % (Auto) 0.100, Neut % (Auto) 41.2 L, Lymph % (Auto) 48.8 H, [place] % (Auto) 6.1, Eos % (Auto) 3.1, Baso % (Auto) 0.7, Absolute Neuts (auto) 3.0, Absolute Lymphs (auto) 3.58, Total Counted Not Reportable 10/23/17 05:15: Sodium 139, Potassium 4.3, Chloride 108 H, Carbon Dioxide 22.0, Anion Gap 9, BUN 33 H, Creatinine 1.48 H, Estim Creat Clear Calc 38.87, Est GFR (MDRD) Af Amer 49 L, Est GFR (MDRD) Non-Af 40 L, BUN/Creatinine Ratio 22.3 H, Glucose 114 H, Calcium 8.0 L Current Medications Acetaminophen (Tylenol) 500 mg PO 4X/DAY PRN PRN PRN Reason: PAIN Acetaminophen (Tylenol) 650 mg PO Q6H PRN PRN PRN Reason: Mild Pain (1-3)/Temp > 100.7 F Last Admin: 10/23/17 05:48 Dose: 650 mg Benztropine Mesylate (Cogentin) 1 mg PO BID [facility] Last Admin: 10/22/17 21:41 Dose: Not Given Cyclobenzaprine HCl (Flexeril) 10 mg PO TID PRN PRN PRN Reason: MUSCLE SPASM Last Admin: 10/23/17 00:29 Dose: 10 mg Haloperidol (Haldol) 2 mg PO QHS [facility] Last Admin: 10/22/17 21:42 Dose: Not Given Heparin Sodium (Porcine) (Heparin Na) 5,000 unit SC Q8 [facility] Last Admin: 10/23/17 05:51 Dose: Not Given Sodium Chloride () 1,000 mls @ 150 mls/hr IV .Q6H40M [facility] Last Admin: 10/23/17 02:55 Dose: 150 mls/hr Levothyroxine Sodium (Synthroid) 25 mcg PO DAILY@0600 [facility] Last Admin: 10/23/17 05:49 Dose: 25 mcg Lidocaine/Diphenhydr/Alum/Mg/Simeth () 10 ml PO Q3H PRN PRN PRN Reason: sore mouth Magnesium Hydroxide (Milk Of Magnesia) 30 ml PO DAILY PRN PRN PRN Reason: Constipation Nutritional Formula (Lactose Free) (Ensure Enlive) 120 ml PO 4X/DAY [facility] Last Admin: 10/22/17 21:42 Dose: Not Given Ondansetron HCl (Zofran Odt) 4 mg PO Q8H PRN PRN PRN Reason: NAUSEA Ondansetron HCl (Zofran) 4 mg IV Q8H PRN PRN PRN Reason: NAUSEA Quetiapine Fumarate (Seroquel) 50 mg PO BID [facility] Last Admin: 10/22/17 21:42 Dose: Not Given Quetiapine Fumarate (Seroquel) 600 mg PO QHS [facility] Last Admin: 10/22/17 21:42 Dose: Not Given Sodium Chloride () 5 - 30 ml IV UD PRN PRN Reason: SALINE FLUSH Medical Necessity - Tobacco Use Smoking Status: Current every day smoker Tobacco Use: Cigarettes Assessment/Plan All Active Problems (Last Updated 10/22/17 @ 14:49 by Rudy Crespo DO) REMBERTO (acute kidney injury) (Acute) Toxic encephalopathy (Acute) Back pain (Acute) Mouth pain (Acute) Syncope (Acute) 1. Acute kidney injury resolved I am unclear of why this is traumatic changes over the past month Will hold the patient's lisinopril/hydrochlorothiazide HLIV FENA 1.2%, however, this may be skewed given HCTZ. Urine urea pending. Avoid nephrotoxic agents follow up BMP as outpt. 2. Suspected toxic encephalopathy much better today. appears appropriate Patient is very anxious agitated Patient does endorse taking crystalline type substance. Patient is positive for lupus drugs though some this may be false positive with her psych psychiatric medications but patient is endorsing some crystalline substance which could be increased from. It is unclear if the patient is very anxious due to possible ingestion Medical management for now Should be noted the patient did receive opiates before the drug screen which could explain the positive drug screen 3. Back pain Seems more muscular etiology Will add Flexeril Avoid narcotics Avoid NSAIDs for now given acute kidney injury 4. Mental health disorder, not otherwise specified Continue with her psychiatric medications Follow-up with psychiatry as outpatient 5. Mouth pain I do not appreciate any ulcers, nor thrush Was on BMX after teeth extraction last week, will resume. 6. DVT prophylaxis with heparin
--- NOTE | 2017-10-23 09:16 | PN_ITS ---
Patient Problems: Active and Suspected Problems (Last Updated 10/22/17 @ 14:49 by Rudy Crespo DO ) REMBERTO (acute kidney injury) (Acute) Toxic encephalopathy (Acute) Back pain (Acute) Mouth pain (Acute) Syncope (Acute) Subjective: Feeling better. Mouth still sore. Back pain better. Vitals/I&O's: Vital Signs Temp Pulse Resp BP Pulse Ox 36.8 C 90 16 110/86 H 96 10/23/17 02:36 10/23/17 02:36 10/23/17 02:36 10/23/17 02:36 10/23/17 02:36 Oxygen Delivery Method Room Air Weight: 67.7 kg Body Mass Index (BMI) 26.4 Intake and Output for Last 24 Hours 10/21/17 10/22/17 10/23/17 23:59 23:59 23:59 Intake Total 2958 / 2958 Balance 2958 / 2958 General: Alert, Cooperative, No apparent distress, - - much more comfortable today. HEENT: - - no ulcers. Upper teeth extraction sites clean based with defect. Oral: Moist Mucosa, No Gingival or Mucosal Lesions/ Ulcerations Cardiovascular: Regular rate, Regular Rhythm, Normal S1, Normal S2, No murmurs Abdomen: Bowel Sounds Present, Soft, Non Tender, Non-Distended, No Hepato- splenomegaly Extremities: No edema, No Calf Tenderness Psych/Mental Status: Normal Affect, Appropriate Laboratory Results 10/23/17 05:15: WBC 7.3, RBC 3.25 L, Hgb 10.9 L, Hct 31.8 L, MCV 97.8, MCH 33.5 H, MCHC 34.3, RDW 11.9, RDW Differential 40.6, Plt Count 282, MPV 9.9, Immature Gran % (Auto) 0.100, Neut % (Auto) 41.2 L, Lymph % (Auto) 48.8 H, [place] % (Auto) 6.1, Eos % (Auto) 3.1, Baso % (Auto) 0.7, Absolute Neuts (auto) 3.0, Absolute Lymphs (auto) 3.58, Total Counted Not Reportable 10/23/17 05:15: Sodium 139, Potassium 4.3, Chloride 108 H, Carbon Dioxide 22.0, Anion Gap 9, BUN 33 H, Creatinine 1.48 H, Estim Creat Clear Calc 38.87, Est GFR (MDRD) Af Amer 49 L, Est GFR (MDRD) Non-Af 40 L, BUN/Creatinine Ratio 22.3 H, Glucose 114 H, Calcium 8.0 L Current Medications Acetaminophen (Tylenol) 500 mg PO 4X/DAY PRN PRN PRN Reason: PAIN Acetaminophen (Tylenol) 650 mg PO Q6H PRN PRN PRN Reason: Mild Pain (1-3)/Temp > 100.7 F Last Admin: 10/23/17 05:48 Dose: 650 mg Benztropine Mesylate (Cogentin) 1 mg PO BID [facility] Last Admin: 10/22/17 21:41 Dose: Not Given Cyclobenzaprine HCl (Flexeril) 10 mg PO TID PRN PRN PRN Reason: MUSCLE SPASM Last Admin: 10/23/17 00:29 Dose: 10 mg Haloperidol (Haldol) 2 mg PO QHS [facility] Last Admin: 10/22/17 21:42 Dose: Not Given Heparin Sodium (Porcine) (Heparin Na) 5,000 unit SC Q8 [facility] Last Admin: 10/23/17 05:51 Dose: Not Given Sodium Chloride () 1,000 mls @ 150 mls/hr IV .Q6H40M [facility] Last Admin: 10/23/17 02:55 Dose: 150 mls/hr Levothyroxine Sodium (Synthroid) 25 mcg PO DAILY@0600 [facility] Last Admin: 10/23/17 05:49 Dose: 25 mcg Lidocaine/Diphenhydr/Alum/Mg/Simeth () 10 ml PO Q3H PRN PRN PRN Reason: sore mouth Magnesium Hydroxide (Milk Of Magnesia) 30 ml PO DAILY PRN PRN PRN Reason: Constipation Nutritional Formula (Lactose Free) (Ensure Enlive) 120 ml PO 4X/DAY [facility] Last Admin: 10/22/17 21:42 Dose: Not Given Ondansetron HCl (Zofran Odt) 4 mg PO Q8H PRN PRN PRN Reason: NAUSEA Ondansetron HCl (Zofran) 4 mg IV Q8H PRN PRN PRN Reason: NAUSEA Quetiapine Fumarate (Seroquel) 50 mg PO BID [facility] Last Admin: 10/22/17 21:42 Dose: Not Given Quetiapine Fumarate (Seroquel) 600 mg PO QHS [facility] Last Admin: 10/22/17 21:42 Dose: Not Given Sodium Chloride () 5 - 30 ml IV UD PRN PRN Reason: SALINE FLUSH Medical Necessity - Tobacco Use Smoking Status: Current every day smoker Tobacco Use: Cigarettes Assessment/Plan All Active Problems (Last Updated 10/22/17 @ 14:49 by Rudy Crespo DO) REMBERTO (acute kidney injury) (Acute) Toxic encephalopathy (Acute) Back pain (Acute) Mouth pain (Acute) Syncope (Acute) 1. Acute kidney injury * resolved * I am unclear of why this is traumatic changes over the past month * Will hold the patient's lisinopril/hydrochlorothiazide * HLIV * FENA 1.2%, however, this may be skewed given HCTZ. Urine urea pending. * Avoid nephrotoxic agents * follow up BMP as outpt. 2. Suspected toxic encephalopathy * much better today. appears appropriate * Patient is very anxious agitated * Patient does endorse taking crystalline type substance. Patient is positive for lupus drugs though some this may be false positive with her psych psychiatric medications but patient is endorsing some crystalline substance which could be increased from. It is unclear if the patient is very anxious due to possible ingestion * Medical management for now * Should be noted the patient did receive opiates before the drug screen which could explain the positive drug screen 3. Back pain * Seems more muscular etiology * Will add Flexeril * Avoid narcotics * Avoid NSAIDs for now given acute kidney injury 4. Mental health disorder, not otherwise specified * Continue with her psychiatric medications * Follow-up with psychiatry as outpatient 5. Mouth pain * I do not appreciate any ulcers, nor thrush * Was on BMX after teeth extraction last week, will resume. 6. DVT prophylaxis with heparin
[2017-10-23 09:21] VITALS: BP 125/86; PULSE 90; RESP 20; TEMP 36.6; O2SAT 99
--- NOTE | 2017-10-23 09:21 | DCINST_ITS ---
- Discharge Diagnoses Current Active Problems: Current Active and Chronic Problems (Last Updated 10/22/17 @ 14:49 by Rudy Crespo DO) REMBERTO (acute kidney injury) (Acute) Toxic encephalopathy (Acute) Back pain (Acute) Mouth pain (Acute) Syncope (Acute) You will use the following diet at home:: No restrictions Your food should be the consistency of: Regular Your liquids should be the consistency of: Regular/Thin Call your doctor if you observe: - - worsening confuison. Additional Instructions: No illicit drugs. Do not consume unknown substances. Allergies/Adverse Reactions: Allergies diphenhydramine HCl [From Benadryl] Allergy (Verified 10/22/17 09:03) Pain in joints Penicillins Allergy (Verified 10/22/17 09:03) Anaphylaxis Sulfa (Sulfonamide Antibiotics) Allergy (Verified 10/22/17 09:03) Anaphylaxis Medications to take at Discharge Acetaminophen 500 mg PO 4X/DAY PRN PRN 10/22/17 Benztropine [Cogentin] 1 mg PO BID 10/22/17 Estradiol 1 mg PO DAILY 10/22/17 Haloperidol 2 mg PO QHS 10/22/17 Levothyroxine [Synthroid] 25 mcg PO DAILY 10/22/17 Ondansetron [Zofran Odt] 4 mg PO Q8H PRN PRN 10/22/17 Quetiapine Fumarate [Seroquel] 50 mg PO BID 10/22/17 Quetiapine Fumarate [Seroquel] 600 mg PO QHS 10/22/17 Bmx Liquid 10 ml PO Q3H PRN PRN #250 ml 10/23/17 Cyclobenzaprine [Flexeril] 10 mg PO TID PRN PRN #21 tab 10/23/17 The following prescriptions were given: Bmx Liquid 10 ml PO Q3H PRN PRN #250 ml PRN Reason: sore mouth Cyclobenzaprine [Flexeril] 10 mg PO TID PRN PRN #21 tab PRN Reason: Muscle Spasm Primary Care Physician: Antonio Ndiaye Chi, MD [Primary Care Provider] - Within 2 Weeks Test Results: Test results from this visit will be discussed in further detail at your follow- up appointment, if applicable. Please Follow Up With: Dentistry When: 1-2 months, or sooner, if needed, for teeth extraction follow up Proposed Discharge Date: 10/23/17
--- NOTE | 2017-10-23 09:21 | PCM.DC.SUM ---
Discharge Date and Diagnosis - Problem List Patient Problems: Active and Suspected Problems (Last Updated 10/22/17 @ 14:49 by Rudy Crespo DO) REMBERTO (acute kidney injury) (Acute) Toxic encephalopathy (Acute) Back pain (Acute) Mouth pain (Acute) Syncope (Acute) Date of Admission: 10/22/17 Date of Discharge: 10/23/17 - Primary Discharge Diagnosis Active and Suspected Problems (Last Updated 10/22/17 @ 14:49 by Rudy Crespo DO) REMBERTO (acute kidney injury) (Acute) Toxic encephalopathy (Acute) Back pain (Acute) Mouth pain (Acute) Syncope (Acute) Hospital Course and Treatment Imaging Results: Clinical Impression(s) from Imaging Studies Abdomen/Pelvis CT 10/22/17 09:09 IMPRESSION: Hypoventilatory and mild atelectatic changes in the lung bases. Mild thickening of the transverse colon probably due to underdistention. Colitis is less likely. Otherwise no demonstrated acute process. Small umbilical hernia containing fat. Small hiatal hernia. Electronically Signed: Lux Medrano MD at 10:06 EDT Tel , Service support , Operations: None Procedures: None Summary of Care Provided: The patient is a 47 year old F presents with confusion. Found to have REMBERTO, with a Cr of 3.48. 1. Acute kidney injury resolved I am unclear of why this is traumatic changes over the past month Will hold the patient's lisinopril/hydrochlorothiazide HLIV FENA 1.2%, however, this may be skewed given HCTZ. Urine urea pending. Avoid nephrotoxic agents follow up BMP as outpt. 2. Suspected toxic encephalopathy much better today. appears appropriate Patient is very anxious agitated Patient does endorse taking crystalline type substance. Patient is positive for amphetamines, methamphetamines/MDMA drugs though some this may be false positive with her psych psychiatric medications but patient is endorsing some crystalline substance which could be increased from. It is unclear if the patient is very anxious due to possible ingestion Medical management for now Should be noted the patient did receive opiates before the drug screen which could explain the positive drug screen 3. Back pain Seems more muscular etiology Will add Flexeril Avoid narcotics Avoid NSAIDs for now given acute kidney injury 4. Mental health disorder, not otherwise specified Continue with her psychiatric medications Follow-up with psychiatry as outpatient 5. Mouth pain I do not appreciate any ulcers, nor thrush Was on BMX after teeth extraction last week, will resume.[] Discharge Diet: No Restrictions Discharge Activity: Return to Normal Activity Call your doctor if you observe: - - worsening confuison. Home Medications: Medications to take at Discharge Acetaminophen 500 mg PO 4X/DAY PRN PRN 10/22/17 Benztropine [Cogentin] 1 mg PO BID 10/22/17 Estradiol 1 mg PO DAILY 10/22/17 Haloperidol 2 mg PO QHS 10/22/17 Levothyroxine [Synthroid] 25 mcg PO DAILY 10/22/17 Ondansetron [Zofran Odt] 4 mg PO Q8H PRN PRN 10/22/17 Quetiapine Fumarate [Seroquel] 50 mg PO BID 10/22/17 Quetiapine Fumarate [Seroquel] 600 mg PO QHS 10/22/17 Bmx Liquid 10 ml PO Q3H PRN PRN #250 ml 10/23/17 Cyclobenzaprine [Flexeril] 10 mg PO TID PRN PRN #21 tab 10/23/17 Following Prescrptions Were Given to Patient: Bmx Liquid 10 ml PO Q3H PRN PRN #250 ml PRN Reason: sore mouth Cyclobenzaprine [Flexeril] 10 mg PO TID PRN PRN #21 tab PRN Reason: Muscle Spasm Primary Care Physician: Antonio Ndiaye Chi, MD [Primary Care Provider] - Within 2 Weeks Please Follow Up With: Dentistry When: 1-2 months, or sooner, if needed, for teeth extraction follow up Disposition: Home Minutes spent on discharge:: 32 Patient Condition:: Fair Medical Necessity - Tobacco Use Smoking Status: Current every day smoker Tobacco Use: Cigarettes Meaningful Use Info Meaningful Use Diagnoses (Choose all that apply): None applicable Code Visit OBSV E&M: 13647 Observation care discharge
--- NOTE | 2017-10-23 09:24 | DS.PCM_ITS ---
Discharge Date and Diagnosis - Problem List Patient Problems: Active and Suspected Problems (Last Updated 10/22/17 @ 14:49 by Rudy Crespo DO ) REMBERTO (acute kidney injury) (Acute) Toxic encephalopathy (Acute) Back pain (Acute) Mouth pain (Acute) Syncope (Acute) Date of Admission: 10/22/17 Date of Discharge: 10/23/17 - Primary Discharge Diagnosis Active and Suspected Problems (Last Updated 10/22/17 @ 14:49 by Rudy Crespo DO ) REMBERTO (acute kidney injury) (Acute) Toxic encephalopathy (Acute) Back pain (Acute) Mouth pain (Acute) Syncope (Acute) Hospital Course and Treatment Imaging Results: Clinical Impression(s) from Imaging Studies Abdomen/Pelvis CT 10/22/17 09:09 IMPRESSION: Hypoventilatory and mild atelectatic changes in the lung bases. Mild thickening of the transverse colon probably due to underdistention. Colitis is less likely. Otherwise no demonstrated acute process. Small umbilical hernia containing fat. Small hiatal hernia. Electronically Signed: Lux Medrano MD at 10:06 EDT Tel , Service support , Operations: None Procedures: None Summary of Care Provided: The patient is a 47 year old F presents with confusion. Found to have REMBERTO, with a Cr of 3.48. 1. Acute kidney injury * resolved * I am unclear of why this is traumatic changes over the past month * Will hold the patient's lisinopril/hydrochlorothiazide * HLIV * FENA 1.2%, however, this may be skewed given HCTZ. Urine urea pending. * Avoid nephrotoxic agents * follow up BMP as outpt. 2. Suspected toxic encephalopathy * much better today. appears appropriate * Patient is very anxious agitated * Patient does endorse taking crystalline type substance. Patient is positive for amphetamines, methamphetamines/MDMA drugs though some this may be false positive with her psych psychiatric medications but patient is endorsing some crystalline substance which could be increased from. It is unclear if the patient is very anxious due to possible ingestion * Medical management for now * Should be noted the patient did receive opiates before the drug screen which could explain the positive drug screen 3. Back pain * Seems more muscular etiology * Will add Flexeril * Avoid narcotics * Avoid NSAIDs for now given acute kidney injury 4. Mental health disorder, not otherwise specified * Continue with her psychiatric medications * Follow-up with psychiatry as outpatient 5. Mouth pain * I do not appreciate any ulcers, nor thrush * Was on BMX after teeth extraction last week, will resume.[] Discharge Diet: No Restrictions Discharge Activity: Return to Normal Activity Call your doctor if you observe: - - worsening confuison. Home Medications: Medications to take at Discharge Acetaminophen 500 mg PO 4X/DAY PRN PRN 10/22/17 Benztropine [Cogentin] 1 mg PO BID 10/22/17 Estradiol 1 mg PO DAILY 10/22/17 Haloperidol 2 mg PO QHS 10/22/17 Levothyroxine [Synthroid] 25 mcg PO DAILY 10/22/17 Ondansetron [Zofran Odt] 4 mg PO Q8H PRN PRN 10/22/17 Quetiapine Fumarate [Seroquel] 50 mg PO BID 10/22/17 Quetiapine Fumarate [Seroquel] 600 mg PO QHS 10/22/17 Bmx Liquid 10 ml PO Q3H PRN PRN #250 ml 10/23/17 Cyclobenzaprine [Flexeril] 10 mg PO TID PRN PRN #21 tab 10/23/17 Following Prescrptions Were Given to Patient: Bmx Liquid 10 ml PO Q3H PRN PRN #250 ml PRN Reason: sore mouth Cyclobenzaprine [Flexeril] 10 mg PO TID PRN PRN #21 tab PRN Reason: Muscle Spasm Primary Care Physician: Antonio Ndiaye Chi, MD [Primary Care Provider] - Within 2 Weeks Please Follow Up With: Dentistry When: 1-2 months, or sooner, if needed, for teeth extraction follow up Disposition: Home Minutes spent on discharge:: 32 Patient Condition:: Fair Medical Necessity - Tobacco Use Smoking Status: Current every day smoker Tobacco Use: Cigarettes Meaningful Use Info Meaningful Use Diagnoses (Choose all that apply): None applicable Code Visit OBSV E&M: 33389 Observation care discharge
[2017-10-23] MEDS: QUEtiapine 25 MG Tablet 50 MG PO (09:29)
[2017-10-23] MEDS: Benztropine 2 MG Tablet 1 MG PO (09:30)
[2017-10-23] MEDS: Acetaminophen 500 MG Tablet PO (09:37)
[2017-10-23 09:38] LABS: Urea Nitrogen, Urine 588 mg/dL (NO RANGE EST.)
--- NOTE | 2017-10-23 10:31 | PCA ---
Attempted to call Vand[facility] at [facility] [phone] to notify of DC, no answer.
[2017-10-26 09:29] LABS: Eosinophil Ct. Urine No Eosinophils Seen % (.)
== END 2017-10-23 10:29 | disposition home or self-care (01) | DRG 469 ==
LOC: ED 10:24 → MS3 12:06
PROVIDERS: Emergency Provider Emergency Medicine; Family Provider Family Medicine Geriatric Medicine; PCP Family Medicine Geriatric Medicine
DX: N17.9 Acute kidney failure, unspecified (principal); M54.9 Dorsalgia, unspecified; F17.210 Nicotine dependence, cigarettes, uncomplicated; E03.9 Hypothyroidism, unspecified; K58.9 Irritable bowel syndrome, unspecified; F99 Mental disorder, not otherwise specified; I10 Essential (primary) hypertension; K13.79 Other lesions of oral mucosa; K08.409 Partial loss of teeth, unspecified cause, unspecified class
CPT/HCPCS: 36415; 74176; 80048; 80076; 80307; 81001; 82570; 83690; 84300; 84540; 85025; 87205; 93005; 99285; J7030; P9612; J2405

== ENCOUNTER → 2017-10-24 11:57 | Outpatient (CLI) | payer MEDICAID, SELFPAY ==
[2017-10-24 13:35] LABS: Anion Gap 6 (5-15); BUN 19 mg/dL (7-18); BUN/Creat Ratio 23.2 RATIO (10-20); Calcium,Total 9.3 mg/dL (8.5-10.1); Chloride 111 mmol/L (98-107); Creatinine, Serum 0.82 mg/dL (0.55-1.02); EST Glomerular Filtration Rate 79 mL/min (>60); Est Glom Filt Rate - Afr Amer 96 mL/min (>60); Glucose 86 mg/dL (74-106); Potassium 4.6 mmol/L (3.5-5.1); Sodium Level 141 mmol/L (136-145)
== END ==
PROVIDERS: Family Provider Family Medicine Geriatric Medicine; PCP Family Medicine Geriatric Medicine; Visit Provider Family Medicine Geriatric Medicine
DX: N17.9 Acute kidney failure, unspecified (principal)
CPT/HCPCS: 36415; 80048

== ENCOUNTER 2019-01-12 15:00 | Emergency (ER) | payer MEDICAID, SELFPAY ==
[2019-01-12 15:02] VITALS: BP 159/112; PULSE 117; RESP 20; TEMP 36.6; O2SAT 97; BMI 23.0
--- NOTE | 2019-01-12 15:51 | ED.VIS.GEN ---
History of Present Illness Chief Complaint: Substance Abuse Informant: Patient Onset: Days Narrative: Patient presents with generalized body aches, mouth sores, constant movements for the past 5 days. She does state that she uses meth daily. Her nose is gotten very sore and she did inject the last 2 days. She states I am not good with a needle. She also reports using heroin the past 2 days. It is noted she has significant psychiatric history. Her medicine list included Seroquel and Cogentin. Patient states she missed her last appointment and has been out of her medications for the past week. Past Medical History - Allergies and Home Meds Allergies/Adverse Reactions: Allergies diphenhydramine HCl [From Benadryl] Allergy (Verified 01/12/19 15:01) Pain in joints Penicillins Allergy (Verified 01/12/19 15:01) Anaphylaxis Sulfa (Sulfonamide Antibiotics) Allergy (Verified 01/12/19 15:01) Anaphylaxis Primary Care Physician: [facility] [GROUP OF PHYSICIANS] - As soon as possible Antonio Ndiaye Chi, MD [Primary Care Provider] - As soon as possible Doctors: Counseling center Prior records reviewed: Yes Past Medical History: - - Reviewed Smoking Status: Current every day smoker Drugs: - - Meth - Family History Maternal Family History: Reports: - - no CAD Review of Systems General: Denies: Chills ENT: Reports: Left ear pain, Sore throat Cardiovascular: Denies: Chest pain Respiratory: Reports: Dyspnea, Cough Gastrointestinal: Reports: Abdominal pain Musculoskeletal: Reports: Myalgias Skin: Reports: - - Sores in mouth Psych: Reports: Anxiety Allergy: Denies: Swelling of the tongue Physical Exam Vital Signs/Narrative: Vital Signs Temp Pulse Resp BP Pulse Ox 01/12/19 15:02 97.8 F 117 H 20 H 159/112 H 97 Inital Vital Signs reviewed: Yes General: Well nourished, Well developed Head: Normocephalic Eyes: Perrl, EOMI ENT: Moist mucous membranes, - - Small ulcerations noted along the inferior lower lip. No lesions noted on the gingiva. Cardiovascular: Tachycardia Respiratory: No distress, CTA bilaterally Abdomen: Soft, Nontender Skin: - - Scattered bruises noted diffusely. Neurological: Alert, Oriented x3, - - Patient with akathisia type movements. Diagnostic/Tx/Re-eval Laboratory Results 01/12/19 01/12/19 17:20 17:20 WBC 19.9 H RBC 3.61 L Hgb 11.7 L Hct 33.3 L MCV 92.2 MCH 32.4 H MCHC 35.1 RDW Std Deviation 39.2 RDW Coeff of Arianna 11.6 Plt Count 413 MPV 10.1 Immature Gran % (Auto) 0.500 Neut % (Auto) 76.5 H Lymph % (Auto) 14.2 L [place] % (Auto) 7.5 Eos % (Auto) 0.9 Baso % (Auto) 0.4 Absolute Neuts (auto) 15.3 H Absolute Lymphs (auto) 2.82 Nucleated RBC % 0 Sodium 135 L Potassium 3.1 L Chloride 104 Carbon Dioxide 22.0 Anion Gap 9 BUN 9 Creatinine 0.71 Estim Creat Clear Calc 80.16 Est GFR (MDRD) Af Amer 112 Est GFR (MDRD) Non-Af 93 BUN/Creatinine Ratio 12.6 Glucose 102 Calcium 8.9 Total Bilirubin 0.60 Direct Bilirubin 0.18 AST 95 H ALT 55 Alkaline Phosphatase 89 Total Protein 7.3 Albumin 3.4 Globulin 3.9 - Medical Decision Making Patient was initially given 1 mg of IM Cogentin has been difficulty obtaining her IV. This was followed by IV Ativan. On repeat evaluation she still had significant akathisia movements, but was improved. She states that she felt better. She was given 1 mg of IV Cogentin. On repeat evaluation her movements are improved but still significant. She states that she does feel better and just wants to go home. I did review her medication list with her and confirms doses with the counseling center. She was given a 10-day refill on her prescriptions as I think many of her symptoms are from withdrawal from them. She will also be given BMX liquid for her mouth lesions. ED Disposition - Plan for ED Patient: Disposition: Home or Assisted Living Diagnosis: Akathisia Instructions: DRUG REACTION, Dystonic Prescriptions: Bmx Liquid 10 ml PO Q4H PRN PRN #250 ml PRN Reason: Mouth Irritation Prescription Printed Benztropine [Cogentin] 1 mg PO BID #20 tab Prescription Printed Haloperidol [Haldol] 2 mg PO BID #40 tab Prescription Printed Quetiapine Fumarate [Seroquel] 600 mg PO QHS #20 tab Prescription Printed Quetiapine Fumarate [Seroquel] 50 mg PO BID #20 tab Prescription Printed Levothyroxine [Synthroid] 25 mcg PO DAILY #10 tab Prescription Printed Referrals: Antonio Ndiaye Chi, MD [Primary Care Provider] - As soon as possible [facility] [[facility] OF PHYSICIANS] - As soon as possible
[2019-01-12 17:23] VITALS: BP 189/137; PULSE 105; RESP 30; O2SAT 97
[2019-01-12] MEDS: 0.9% Normal Saline 1,000 ML 150 ML IV (17:24)
[2019-01-12 17:28] LABS: Absolute Lymphocyte Count 2.82 X10^3/uL (0.83-4.51); Absolute Neutrophil Count 15.3 X10^3/uL (2.0-7.7); Basophil# 0.07 X10^3/uL; Basophil% 0.4 % (0-1); Eosinophil# 0.17 X10^3/uL; Eosinophils% 0.9 % (0-5); Hematocrit 33.3 % (37-47); Hemoglobin 11.7 g/dL (12.0-15.0); Lymphocyte # 2.82 X10^3/ul (4.0); Lymphocyte % 14.2 % (19-41); Mean Corp Hgb Conc 35.1 g/dL (32-36); Mean Corpuscular Hgb 32.4 pg (27.0-32.0); Mean Corpuscular Volume 92.2 fL (81-99); Mean Platelet Vol. 10.1 fl (6.2-12.0); Monocyte# 1.49 X10^3/uL; Monocyte% 7.5 % (0-10); NRBC Flagged by Analyzer 0 % (0-5); Neutrophil # 15.26 X10^3/uL (2.7-7.7); Neutrophil % 76.5 % (47-70); Platelet Count 413 K/mm3 (150-450); RBC Distribution Width CV 11.6 % (11.6-14.6); RBC Distribution Width SD 39.2 fl (35.1-43.9); Red Blood Count 3.61 M/mm3 (4.2-5.4); White Blood Count 19.9 K/mm3 (4.4-11.0)
[2019-01-12] MEDS: LORazepam 2 MG/ML Syringe 1 MG IV (17:34)
[2019-01-12 17:53] LABS: AST(SGOT) 95 U/L (15-37); Alanine Aminotransfer ALT/SGPT 55 U/L (13-56); Albumin, Serum 3.4 g/dL (3.2-5.0); Alkaline Phosphatase 89 U/L (45-117); Anion Gap 9 (5-15); BUN 9 mg/dL (7-18); BUN/Creat Ratio 12.6 RATIO (10-20); Bilirubin, Direct 0.18 mg/dL (0.00-0.30); Calcium,Total 8.9 mg/dL (8.5-10.1); Chloride 104 mmol/L (98-107); Creatinine, Serum 0.71 mg/dL (0.55-1.02); EST Glomerular Filtration Rate 93 mL/min (>60); Est Glom Filt Rate - Afr Amer 112 mL/min (>60); Estimated Creatinine Clearance 80.16 ml/min; Globulin 3.9 g/dL (2.2-4.2); Glucose 102 mg/dL (74-106); Potassium 3.1 mmol/L (3.5-5.1); Protein, Total 7.3 g/dL (6.4-8.2); Sodium Level 135 mmol/L (136-145)
[2019-01-12 20:29] VITALS: BP 157/100; PULSE 100; RESP 18; O2SAT 97
[2019-01-12 21:29] VITALS: BP 148/98; PULSE 100; RESP 17; O2SAT 98
== END 2019-01-12 21:31 | disposition home or self-care (01) ==
PROVIDERS: Emergency Provider Emergency Medicine; Family Provider Family Medicine Geriatric Medicine; PCP Family Medicine Geriatric Medicine
DX: G25.71 Drug induced akathisia (principal); F17.200 Nicotine dependence, unspecified, uncomplicated; Z88.0 Allergy status to penicillin; Z88.2 Allergy status to sulfonamides; Z88.8 Allergy status to other drugs, medicaments and biological substances
CPT/HCPCS: 80048; 80076; 85025; 99284; J7030; A4216

== ENCOUNTER 2019-03-05 19:04 | Emergency (ER) | payer MEDICAID, SELFPAY ==
[2019-03-05 19:06] VITALS: BP 131/111; PULSE 108; RESP 18; TEMP 36.1; O2SAT 100; BMI 24.7
[2019-03-05] MEDS: Diphenoxylate/Atrop 1 Tablet 2 TABLET PO (20:36)
[2019-03-05] MEDS: hydrOXYzine 50 MG/ML Vial IM (20:50)
[2019-03-05 20:53] LABS: Absolute Lymphocyte Count 2.25 X10^3/uL (0.83-4.51); Absolute Neutrophil Count 3.4 X10^3/uL (2.0-7.7); Basophil# 0.05 X10^3/uL; Basophil% 0.8 % (0-1); Eosinophil# 0.13 X10^3/uL; Hematocrit 38.3 % (37-47); Lymphocyte # 2.25 X10^3/ul (4.0); Lymphocyte % 35.3 % (19-41); Mean Corp Hgb Conc 33.9 g/dL (32-36); Mean Corpuscular Hgb 31.8 pg (27.0-32.0); Mean Corpuscular Volume 93.6 fL (81-99); Mean Platelet Vol. 9.3 fl (6.2-12.0); Monocyte# 0.55 X10^3/uL; Monocyte% 8.6 % (0-10); NRBC Flagged by Analyzer 0 % (0-5); Neutrophil # 3.37 X10^3/uL (2.7-7.7); Platelet Count 386 K/mm3 (150-450); RBC Distribution Width CV 12.5 % (11.6-14.6); Red Blood Count 4.09 M/mm3 (4.2-5.4); White Blood Count 6.4 K/mm3 (4.4-11.0)
[2019-03-05 21:12] LABS: ALB/GLOB Ratio 0.9 RATIO (0.9-2.4); AST(SGOT) 21 U/L (15-37); Alanine Aminotransfer ALT/SGPT 25 U/L (13-56); Albumin, Serum 3.6 g/dL (3.2-5.0); Alkaline Phosphatase 69 U/L (45-117); Anion Gap 10 (5-15); BUN 16 mg/dL (7-18); BUN/Creat Ratio 22.1 RATIO (10-20); Calcium,Total 9.4 mg/dL (8.5-10.1); Chloride 110 mmol/L (98-107); Creatinine, Serum 0.72 mg/dL (0.55-1.02); EST Glomerular Filtration Rate 91 mL/min (>60); Est Glom Filt Rate - Afr Amer 110 mL/min (>60); Estimated Creatinine Clearance 78.19 ml/min; Globulin 4.1 g/dL (2.2-4.2); Glucose 100 mg/dL (74-106); Potassium 3.7 mmol/L (3.5-5.1); Protein, Total 7.7 g/dL (6.4-8.2); Sodium Level 142 mmol/L (136-145)
[2019-03-05 21:18] VITALS: BP 158/118; PULSE 78; RESP 16; O2SAT 94
--- NOTE | 2019-03-05 21:20 | ED.RN ---
PT REPORTED SHE IS OUT OF ALL OF HER MEDICATIONS AND BLOOD PRESSURE MEDICATIONS.
--- NOTE | 2019-03-05 22:16 | ED.DCSUM_ITS ---
- ER Visit Summary Date of Service: 03/05/19 Chief Complaint: Itching History of Present Illness: The patient is a [address] Ndiaye in the counseling center. She reports that she has itching that began 9 days ago. She denies any change in soap, shampoo, laundry detergent, or fabric softener. No new clothing, bedding, carpeting, or pets. No new medications. Physical Examination: Vitals: Stable. Afebrile. General: Well-nourished and well-developed. Head: Normocephalic atraumatic. Neck: Supple, no lymphadenopathy. No JVD. Nontender. Cardiovascular: Regular rate and rhythm. No murmurs. Respiratory: No respiratory distress. Clear to auscultation bilaterally. Abdominal: Soft, nontender, nondistended, normal bowel sounds. No guarding, rebound, or peritoneal signs. Back: Nontender. Extremities: Nontender, no edema. Skin: Normal color, no rash. Multiple areas that have been picked out to her extremities, trunk, and face. Neurologic: Alert and oriented ?3. Cranial nerves II through XII are intact. Normal strength and sensation. Psych: Normal affect. Test Results: CBC is normal. Chem-7 shows a chloride of 110. LFTs are normal. Emergency Department Course and Treatment: Had a prolonged discussion with the patient that I suspect her picking is from methamphetamine use. She reports that I have not used for a few days. She also states that she has a history of schizoaffective disorder and is out of her medications. She was given a dose of Vistaril IM. She was given Cogentin, Haldol, and Seroquel p.o. She is resting more comfortably. Treatment Plan: Patient will be discharged with 2 weeks worth of her medications. Instructed to follow-up the counseling center soon as possible. Follow-up with Dr. Ndiaye as needed. She is instructed to abstain from methamphe tamine use. Return to the emergency department for any worsening symptoms. Disposition: To home in improved and stable condition. Impression: 1. Methamphetamine abuse. 2. Schizoaffective disorder. 3. Medication noncompliance. This note was generated with [email or web address] software. It may contain incorrect words, spelling, and punctuation that were not noted in review of the chart prior to signing ED Disposition - Plan for ED Patient: Disposition: Home or Assisted Living Instructions: Drug Abuse Prescriptions: Benztropine [Cogentin] 1 mg PO BID #30 tab Prescription Printed Haloperidol [Haldol] 2 mg PO BID #60 tab Prescription Printed Quetiapine Fumarate [Seroquel] 600 mg PO QHS #30 tab Prescription Printed Quetiapine Fumarate [Seroquel] 50 mg PO BID #30 tab Prescription Printed Levothyroxine [Synthroid] 25 mcg PO DAILY #14 tab Prescription Printed Referrals: [facility] [GROUP OF PHYSICIANS] - As soon as possible Antonio Ndiaye Chi, MD [Primary Care Provider] - 1-2 Days if not improving
[2019-03-05 22:32] VITALS: BP 157/94; PULSE 80; RESP 16; O2SAT 99
[2019-03-05] MEDS: Benztropine 2 MG Tablet 1 MG PO (23:01)
[2019-03-05] MEDS: QUEtiapine 100 MG Tablet 600 MG PO (23:01)
[2019-03-05] MEDS: Haloperidol 1 MG Tablet 2 MG PO (23:09)
[2019-03-05 23:12] VITALS: BP 157/94; PULSE 80; RESP 16; O2SAT 99
== END 2019-03-05 23:13 | disposition home or self-care (01) ==
LOC: ED 19:59
PROVIDERS: Emergency Provider Emergency Medicine; Family Provider Family Medicine Geriatric Medicine; PCP Family Medicine Geriatric Medicine
DX: F15.10 Other stimulant abuse, uncomplicated (principal); F25.9 Schizoaffective disorder, unspecified; L29.9 Pruritus, unspecified; Z91.14 Patient's other noncompliance with medication regimen; I10 Essential (primary) hypertension; E03.9 Hypothyroidism, unspecified; F17.210 Nicotine dependence, cigarettes, uncomplicated; G35 Multiple sclerosis
CPT/HCPCS: 80053; 85025; 96360; 96372; 99284; J7030

== ENCOUNTER 2019-04-16 13:31 | Emergency (ER) | payer MEDICAID, SELFPAY ==
[2019-04-16 13:35] VITALS: BP 141/96; PULSE 112; RESP 18; TEMP 36; O2SAT 98; BMI 20.5
--- NOTE | 2019-04-16 14:04 | EKG12_ITS ---
Test Reason : MENTAL HEALTH Blood Pressure : / mmHG Vent. Rate : 099 BPM Atrial Rate : 099 BPM P-R Int : 160 ms QRS Dur : 078 ms QT Int : 336 ms P-R-T Axes : 072 060 062 degrees QTc Int : 431 ms Normal sinus rhythm Normal ECG Confirmed by ТАТЬЯНА AGUILAR, JIMY ([id number]), editor publications GINO CHEN ([id number]) on 04/18/2019 1:48:05 PM Referred By: MR Confirmed By:JIMY VAZ MD
[2019-04-16 14:34] LABS: Absolute Lymphocyte Count 4.05 X10^3/uL (0.83-4.51); Absolute Neutrophil Count 8.6 X10^3/uL (2.0-7.7); Basophil# 0.14 X10^3/uL; Eosinophil# 0.19 X10^3/uL; Eosinophils% 1.4 % (0-5); Hematocrit 36.8 % (37-47); Hemoglobin 12.4 g/dL (12.0-15.0); Lymphocyte # 4.05 X10^3/ul (4.0); Lymphocyte % 28.8 % (19-41); Mean Corp Hgb Conc 33.7 g/dL (32-36); Mean Corpuscular Hgb 31.6 pg (27.0-32.0); Mean Corpuscular Volume 93.9 fL (81-99); Mean Platelet Vol. 9.6 fl (6.2-12.0); Monocyte# 0.98 X10^3/uL; NRBC Flagged by Analyzer 0 % (0-5); Neutrophil # 8.64 X10^3/uL (2.7-7.7); Neutrophil % 61.4 % (47-70); Platelet Count 375 K/mm3 (150-450); RBC Distribution Width CV 12.8 % (11.6-14.6); RBC Distribution Width SD 43.9 fl (35.1-43.9); Red Blood Count 3.92 M/mm3 (4.2-5.4); White Blood Count 14.1 K/mm3 (4.4-11.0)
[2019-04-16 14:42] LABS: Internal QC Validated? YES +Cl - CLEAR BKGD; Pregnancy, Serum, hCG Quali. NEGATIVE Negative
[2019-04-16 14:48] LABS: Anion Gap 9 (5-15); BUN 20 mg/dL (7-18); BUN/Creat Ratio 26.6 RATIO (10-20); Calcium,Total 9.7 mg/dL (8.5-10.1); Chloride 110 mmol/L (98-107); Creatinine, Serum 0.75 mg/dL (0.55-1.02); EST Glomerular Filtration Rate 87 mL/min (>60); Est Glom Filt Rate - Afr Amer 105 mL/min (>60); Estimated Creatinine Clearance 75.06 ml/min; Glucose 95 mg/dL (74-106); Potassium 3.6 mmol/L (3.5-5.1); Sodium Level 139 mmol/L (136-145)
--- NOTE | 2019-04-16 15:00 | ED.VIS.PSYCH ---
History of Present Illness Chief Complaint: Mental Health Narrative: Patient presenting for a psychiatric evaluation. Patient reports to me that she has been having issues with her roommates, but the patient was brought in by deputies due to abnormal behavior. Patient tells me that she has a history of schizoaffective. She denies being homicidal hallucinating or suicidal. She prefix is on some dental pain that she has. Patient apparently also has been beating herself up and punching herself and has bruises all over. Past Medical History - Allergies and Home Meds Allergies/Adverse Reactions: Allergies diphenhydramine HCl [From Benadryl] Allergy (Verified 04/16/19 13:35) Pain in joints Penicillins Allergy (Verified 04/16/19 13:35) Anaphylaxis Sulfa (Sulfonamide Antibiotics) Allergy (Verified 04/16/19 13:35) Anaphylaxis Primary Care Physician: Antonio Ndiaye Chi, MD [Primary Care Provider] - Past Medical History: - - Psychiatric disease Smoking Status: Current every day smoker - Family History Maternal Family History: Reports: - - no CAD Review of Systems All systems negative except as indicated General: Denies: Chills, Fever, Sweats Eyes: Denies: Visual changes - bilaterally, Diplopia ENT: Reports: - - Dental pain Cardiovascular: Denies: Chest pain, Palpitations Respiratory: Denies: Dyspnea, Cough, Dyspnea on exertion Gastrointestinal: Denies: Abdominal pain, Nausea, Vomiting, Diarrhea, Melena, Hematochezia Genitourinary: Denies: Dysuria, Hematuria, Frequency Musculoskeletal: Denies: Back pain, Extremity Pain Skin: Denies: Rash, Wounds Neurological: Denies: Headache, Weakness, Numbness Physical Exam Vital Signs/Narrative: Vital Signs Temp Pulse Resp BP Pulse Ox 04/16/19 13:35 96.8 F L 112 H 18 141/96 H 98 Inital Vital Signs reviewed: Yes General: Well nourished, Well developed Head: Normocephalic, Atraumatic Eyes: Perrl, EOMI ENT: Moist mucous membranes, No rhinorrhea Cardiovascular: Regular rhythm, Tachycardia Respiratory: No distress, CTA bilaterally, Chest nontender Abdomen: Soft, Nontender, Nondistended, Normal bowel sounds Extremities: - - Multiple bruises on the upper extremities bilaterally Skin: Normal color Neurological: Alert, Oriented x3 Psych: - - Patient has extremely pressured speech with psychomotor agitation and tangential thoughts. Diagnostic/Tx/Re-eval - EKG Initial EKG Interpretation: - - Sinus rhythm [address] segments normal T waves normal CA and QTc intervals no evidence of acute ischemia or arrhythmia. Patient presented for psych eval. My initial impression of the patient is either that she has been abusing methamphetamine or she is suffering from acute shima. Screening labs including CBC chemistry were found to be unremarkable. Urine toxicology screen is pending. Patient did have increasing psychomotor agitation and required Geodon while she was in the emergency department. Patient at this point I do believe will benefit from psychiatric stabilization. She will be signed out to the oncoming physician who will follow up on crisis evaluation. ED Disposition - Plan for ED Patient: Diagnosis: Psychomotor agitation, Shima Referrals: Antonio Ndiaye Chi, MD [Primary Care Provider] -
[2019-04-16 15:08] LABS: Alcohol, Blood (Medical)-Serum < 3.0 mg/dL
[2019-04-16] MEDS: Ziprasidone IM 20 MG/ML VIAL IM (15:54)
[2019-04-16 16:56] LABS: Amphetamine Urine VISTA POSITIVE (<1000 ng/mL); Barbiturate Urine VISTA NEGATIVE (< 200 ng/mL); Benzodiazepine Urine VISTA NEGATIVE (< 200 ng/mL); Cocaine Urine VISTA NEGATIVE (< 300 ng/mL); Ecstacy Urine VISTA POSITIVE (< 500 ng/mL); Methadone Urine VISTA NEGATIVE (< 300 ng/mL); PCP Urine VISTA NEGATIVE (< 25 ng/mL); THC Urine VISTA NEGATIVE (< 50 ng/mL); Vista UDS pH Range 5
[2019-04-16 17:07] VITALS: PULSE 95; RESP 16; O2SAT 96
--- NOTE | 2019-04-16 17:47 | NURSING ---
CALLED CRISIS, LUZ MARIA IS COMING TO SEE PATIENT
[2019-04-16 19:00] VITALS: RESP 16
[2019-04-16 21:13] VITALS: BP 135/90; PULSE 97; RESP 16; O2SAT 98
[2019-04-16] MEDS: QUEtiapine 100 MG Tablet 600 MG PO (21:13)
[2019-04-16] MEDS: LORazepam 1 MG Tablet 2 MG PO (21:14)
[2019-04-16] MEDS: Haloperidol 1 MG Tablet 2 MG PO (21:15)
--- NOTE | 2019-04-16 21:50 | ED.RN ---
patient has been refereed to arturo weinstein at this time
--- NOTE | 2019-04-16 22:33 | NURSING ---
report called to angela
[2019-04-16 23:00] VITALS: RESP 16
== END 2019-04-17 00:26 ==
PROVIDERS: Emergency Provider Emergency Medicine; PCP Family Medicine Geriatric Medicine
DX: R45.1 Restlessness and agitation (principal); F30.9 Manic episode, unspecified; F17.200 Nicotine dependence, unspecified, uncomplicated; Z88.0 Allergy status to penicillin; Z88.2 Allergy status to sulfonamides; Z88.8 Allergy status to other drugs, medicaments and biological substances; K08.89 Other specified disorders of teeth and supporting structures
CPT/HCPCS: 80048; 80307; 80320; 84703; 85025; 93005; 96372; 99285; P9612; G0480; J3486

== ENCOUNTER 2020-04-16 10:04 | Emergency (ER) | payer MEDICAID, SELFPAY ==
[2020-04-16] VITALS (13 sets, daily range): BP systolic 124–196; BP diastolic 72–128; PULSE 77–89; RESP 14–20; TEMP 36.1; O2SAT 98–99; BMI 19.7
--- NOTE | 2020-04-16 10:12 | EKG12_ITS ---
Test Reason : MENTAL CLEARNCE Blood Pressure : / mmHG Vent. Rate : 084 BPM Atrial Rate : 084 BPM P-R Int : 142 ms QRS Dur : 080 ms QT Int : 370 ms P-R-T Axes : 059 067 064 degrees QTc Int : 437 ms Normal sinus rhythm with sinus arrhythmia Normal ECG Confirmed by GARLAND AGUILAR, JESUS ([id number]), alarm security or surveillance monitor GINO CHEN ([id number]) on 04/21/2020 11:02:54 AM Referred By: CRISTA Confirmed By:TOM HAQUE MD
--- NOTE | 2020-04-16 10:14 | ED.VIS.GEN ---
History of Present Illness Informant: Patient Narrative: Patient was reportedly dropped off at the hospital by a friend. They tell me that somebody dropped her off on their front porch. She is acting bizarrely and cannot stop moving. They report that she made a comment that she wanted to harm herself. Patient has a history of schizoaffective disorder. About 1 year ago she was seen in the emergency department with a methamphetamine toxidrome. She presented very similar to this. Patient cannot make any intelligible comments to me. <Fransisco Downing - Last Filed: 04/16/20 11:24> <Alyssa Fuller - Last Filed: 04/16/20 23:54> Chief Complaint: Mental Health Past Medical History Past Medical History: - - Schizoaffective disorder methamphetamine abuser Surgical History: noncontributory Smoking Status: Unknown if ever smoked Drugs: - - Methamphetamine - Family History Maternal Family History: Reports: - - no CAD <Fransisco Downing - Last Filed: 04/16/20 11:24> <Alyssa Fuller - Last Filed: 04/16/20 23:54> - Allergies and Home Meds Allergies/Adverse Reactions: Allergies diphenhydramine HCl [From Benadryl] Allergy (Verified 04/16/19 13:35) Pain in joints Penicillins Allergy (Verified 04/16/19 13:35) Anaphylaxis Sulfa (Sulfonamide Antibiotics) Allergy (Verified 04/16/19 13:35) Anaphylaxis Primary Care Physician: Antonio Ndiaye Chi, MD [Primary Care Provider] - Review of Systems ROS: Unable to Obtain <Fransisco Downing - Last Filed: 04/16/20 11:24> Physical Exam Vital Signs/Narrative: Vital Signs Temp Pulse Resp BP Pulse Ox 04/16/20 10:06 97 F L 89 20 H 196/128 H 99 Inital Vital Signs reviewed: Yes General: Well developed, Cachectic, No Acute Distress Head: Normocephalic, Atraumatic Eyes: Perrl, EOMI ENT: Moist mucous membranes, No rhinorrhea Neck: Supple, Nontender Cardiovascular: Regular rate, No murmurs, Tachycardia Respiratory: No distress, CTA bilaterally, Chest nontender Abdomen: Soft, Nontender, Nondistended, Normal bowel sounds Back: Nontender, Normal Inspection Extremities: Nontender, No edema Skin: Normal color, No rash Neurological: Alert, Cranial nerves II-XII grossly intact, Normal Strength, Normal Sensation, - - Patient has nonstop movements of her arms and head. No seizure activity. Patient attempts to communicate but her words are garbled. Psychological: Agitated <Fransisco Downing - Last Filed: 04/16/20 11:24> Vital Signs/Narrative: Vital Signs Pulse Resp BP Pulse Ox 04/16/20 23:00 14 04/16/20 22:00 15 04/16/20 21:00 80 15 135/79 H 98 04/16/20 20:00 83 14 133/72 H 98 <MorganrodolfoAlyssa - Last Filed: 04/16/20 23:54> Diagnostic/Tx/Re-eval - EKG Initial EKG Interpretation: Sinus Rhythm - EKG demonstrates a normal sinus rhythm with a sinus arrhythmia at a rate of 84. No concerning features of ACS or ectopy - Medical Decision Making Patient was sedated using Haldol and Ativan. My interpretation of a single view portable chest x-ray is no acute process. Nursing reported to me that upon performing a straight catheter to obtain urine from her, they noticed a thick vaginal discharge that was yellowish. GC chlamydia was sent. <Fransisco Downing - Last Filed: 04/16/20 11:24> - Medical Decision Making Patient and out to me to reevaluate once toxidrome has improved and to follow CPK. Her CPKs trending down and I do not suspect significant rhabdomyolysis that would require admission at this time. Patient is improving her mentation is able to remember her address and contact phone number. She is comfortable going home. She states she does not remember what happened earlier today however it still feels a little out of it. At this time patient does not have any focal neurologic deficits and I feel is stable to go home with the care of friend. Patient is encouraged to drink plenty fluids over the next few days. She is encouraged return the emergency room should she start to have any worsening symptoms. She is encouraged to abstain from drug use. She does admit to using amphetamines earlier. Patient is offered detox services/counseling referral but declines. Patient is counseled on signs and symptoms requiring return to the emergency room. Patient verbalizes agreement and understand this plan. Patient discharged home in stable and improved condition. <Alyssa Fuller - Last Filed: 04/16/20 23:54> ED Disposition <Fransisco Downing - Last Filed: 04/16/20 11:24> <Alyssa Fuller - Last Filed: 04/16/20 23:54> - Plan for ED Patient: Disposition: Home or Assisted Living Diagnosis: Methamphetamine intoxication, Elevated CK Instructions: ED Drug Abuse, ED Rhabdomyolysis Referrals: Antonio Ndiaye Chi, MD [Primary Care Provider] - [facility] [STAFF PHYSICIAN] -
[2020-04-16] MEDS: LORazepam 2 MG/ML Syringe IM (10:23)
[2020-04-16] MEDS: Haloperidol Lactate 5 MG/ML Vial 10 MG IM (10:23)
[2020-04-16 11:14] LABS: Mucous, Urine 0 SEEN /hpf (<or=2+); Red Blood Cells-Urine 0 SEEN /hpf (0-5)
--- NOTE | 2020-04-16 11:15 | RAD_ITS ---
STUDY: X-RAY CHEST REASON FOR EXAM: Female, 50 years old. Mental health, substance abuse TECHNIQUE: Single AP portable view of the chest. COMPARISON: Comparison is made with prior study dated 10/04/2017. FINDINGS: Hyperinflation. The lungs are clear. There is no demonstrated pleural abnormality. Normal size heart. Normal mediastinum and wayne. Normal visualized pulmonary arteries. Normal visualized aortic arch and descending thoracic aorta. Normal visualized thoracic spine. Normal visualized ribs, clavicles, and shoulders. There is no demonstrated abnormality of the visualized soft tissue structures of the upper abdomen. RAD/Chest 1 View (Portable) IMPRESSION: Hyperinflation. The lungs are clear. Electronically Signed: Willy Callahan MD at 11:51 EST , Service support ,
[2020-04-16] MEDS: 0.9% Normal Saline 1,000 ML 1000 ML IV ×2 (11:16→13:26)
[2020-04-16 11:18] LABS: Absolute Neutrophil Count 9.2 X10^3/uL (2.0-7.7); Basophil% 0.8 % (0-1); Eosinophil# 0.17 X10^3/uL; Eosinophils% 1.3 % (0-5); Hematocrit 36.8 % (37-47); Lymphocyte % 19.3 % (19-41); Mean Corp Hgb Conc 32.6 g/dL (32-36); Mean Corpuscular Hgb 31.2 pg (27.0-32.0); Mean Corpuscular Volume 95.6 fL (81-99); Mean Platelet Vol. 9.6 fl (6.2-12.0); Monocyte# 0.91 X10^3/uL; NRBC Flagged by Analyzer 0 % (0-5); Neutrophil # 9.23 X10^3/uL (2.7-7.7); Neutrophil % 71.2 % (47-70); Platelet Count 437 K/mm3 (150-450); RBC Distribution Width CV 13.4 % (11.6-14.6); RBC Distribution Width SD 47.1 fl (35.1-43.9); Red Blood Count 3.85 M/mm3 (4.2-5.4)
[2020-04-16 11:19] LABS: Color, Urine Yellow (Yellow); Glucose, Dipstick Normal (Normal); Ketone-Dipstick 15 mg/dl (Negative); Leukocyte Esterase-Dipstick 100 /ul (Negative); Nitrite-Dipstick Negative (Negative); Occult Blood-Urine Negative /ul (Negative); Protein-Dipstick 30 mg/dl (Negative); Specific Gravity, Urine 1.025 (1.002-1.030); Urine Bilirubin Dipstick Negative (Negative); Urine Clarity Sl. Cloudy (Clear); Urine Urobilinogen Normal (Normal)
--- NOTE | 2020-04-16 11:23 | NURSING ---
CHEMISTRIES HEMOLIZED. LAB AWARE THEY WILL HAVE TO REDRAW
[2020-04-16 11:25] LABS: Prothrombin Time (Protime)PT. 12.8 SECONDS (11.7-14.9)
[2020-04-16 11:26] LABS: Partial Thromboplast Time 29.8 Seconds (24.1-36.2)
[2020-04-16 11:26] LABS: Bacteria 1+ /hpf (None Seen); Squamous Epithelial Cells - UA 0-5 SEEN /hpf (5-10); White Blood Cells 10-25 SEEN /hpf (0-5)
[2020-04-16 11:52] LABS: Amphetamine Urine VISTA POSITIVE (<1000 ng/mL); Barbiturate Urine VISTA NEGATIVE (< 200 ng/mL); Benzodiazepine Urine VISTA POSITIVE (< 200 ng/mL); Cocaine Urine VISTA NEGATIVE (< 300 ng/mL); Ecstacy Urine VISTA POSITIVE (< 500 ng/mL); Methadone Urine VISTA NEGATIVE (< 300 ng/mL); PCP Urine VISTA NEGATIVE (< 25 ng/mL); THC Urine VISTA NEGATIVE (< 50 ng/mL); Vista UDS pH Range 5
[2020-04-16 11:54] LABS: Internal QC Validated? YES +Cl - CLEAR BKGD; Pregnancy, Serum, hCG Quali. NEGATIVE Negative
[2020-04-16 12:12] LABS: Alcohol, Blood (Medical)-Serum < 3.0 mg/dL
[2020-04-16 12:23] LABS: Lactic Acid 0.7 mmol/L (0.4-1.9)
[2020-04-16 12:42] LABS: ALB/GLOB Ratio 0.8 RATIO (0.9-2.4); AST(SGOT) 31 U/L (15-37); Alanine Aminotransfer ALT/SGPT 30 U/L (13-56); Albumin, Serum 3.2 g/dL (3.2-5.0); Alkaline Phosphatase 97 U/L (45-117); Anion Gap 8 (5-15); BUN 24 mg/dL (7-18); BUN/Creat Ratio 42.9 RATIO (10-20); CPK Total, Creatine Kinase 553 U/L (26-192); Calcium,Total 8.7 mg/dL (8.5-10.1); Chloride 108 mmol/L (98-107); Creatinine, Serum 0.56 mg/dL (0.55-1.02); EST Glomerular Filtration Rate 122 mL/min (>60); Est Glom Filt Rate - Afr Amer 147 mL/min (>60); Estimated Creatinine Clearance 86.33 ml/min; Glucose 89 mg/dL (74-106); Lipase 75 U/L (73-393); Potassium 3.5 mmol/L (3.5-5.1); Protein, Total 7.2 g/dL (6.4-8.2); Sodium Level 139 mmol/L (136-145)
[2020-04-16 14:27] LABS: Chlamydia Trachomatis by PCR Negative (Negative); Neisserai gonorrhoeae by PCR Negative (Negative); Specimen Processing Control PASS
[2020-04-16 14:28] LABS: Probe Check PASS; Sample Adequacy Control PASS
[2020-04-16 15:13] LABS: CPK Total, Creatine Kinase 571 U/L (26-192)
[2020-04-16] MEDS: Lactated Ringers 1,000 ML 999 ML IV (15:37)
[2020-04-16] MEDS: Lactated Ringers 1,000 ML 1000 ML IV (16:48)
[2020-04-16 21:19] LABS: CPK Total, Creatine Kinase 416 U/L (26-192)
[2020-04-17] VITALS: RESP 17
[2020-04-17 10:10] VITALS: BP 148/96; PULSE 89; RESP 15; O2SAT 95
== END 2020-04-17 10:10 | disposition home or self-care (01) ==
PROVIDERS: Emergency Medicine; Emergency Provider Emergency Medicine; PCP Family Medicine Geriatric Medicine
DX: F15.129 Other stimulant abuse with intoxication, unspecified (principal); F25.9 Schizoaffective disorder, unspecified; Z88.0 Allergy status to penicillin; Z88.2 Allergy status to sulfonamides; Z88.8 Allergy status to other drugs, medicaments and biological substances; R74.8 Abnormal levels of other serum enzymes
CPT/HCPCS: 36415; 71045; 80053; 80307; 81001; 82077; 82550; 83605; 83690; 84484; 84703; 85025; 85610; 85730; 87426; 87491; 87591; 93005; 96360; 96361; 96372; 99285; J7030; J7120; A4216